=== PATIENT | male | born 1945 | race Hispanic/Latino ===

== ENCOUNTER 2017-10-23 13:44 | Inpatient (IN) | payer MEDICARE ==
[2017-10-23] MEDS ORDERED: Morphine 2 mg/ml ISec IVP STA (14:08)
[2017-10-23] MEDS ORDERED: Sodium Chloride 0.9% 500 ML IV STA ×2 (14:08→21:34)
[2017-10-23 14:41] LABS: BASO # 0.01 K/mm3 (0.0-2.0); BASO % 0.1 % (0.0-3.0); EOS % 0.1 % (1.5-5.0); GRAN # 11.63 (1.4-6.5); GRAN % 89.4 % (50.0-68.0); HEMOGLOBIN 15.4 g/dL (14.0-18.0); LYMPH # 0.9 (1.2-3.4); LYMPH % 7.1 % (22.0-35.0); MEAN CELL VOLUME 99.1 fl (80.0-105.0); MEAN CORPUSCULAR HEMOGLOBIN 34.8 pg (25.0-35.0); MEAN CORPUSCULAR HGB CONC 35.1 g/dl (31.0-37.0); MEAN PLATELET VOLUME 10.5 fl (7.0-11.0); MONO # 0.4 (0.1-0.6); MONO % 3.3 % (1.0-6.0); RBC 4.43 10^6/uL (3.5-6.1); RED CELL DISTRIBUTION WIDTH 12.8 % (11.5-14.5); VENOUS BLOOD GAS BASE EXCESS -1.5 mmol/L (0.0-2.0); VENOUS BLOOD GAS PO2 90 mm/Hg (30-55); VENOUS BLOOD PH 7.37 (7.32-7.43)
[2017-10-23 14:49] LABS: INR 1.02; PARTIAL THROMBOPLASTIN TIME 26.1 Seconds (25.1-36.5); PROTHROMBIN TIME 11.7 SECONDS (9.4-12.5)
[2017-10-23 14:51] LABS: ALB/GLOB RATIO 1.3 (1.1-1.8); ALBUMIN 3.7 g/dL (3.0-4.8); ALT/SGPT 37 U/L (7-56); AMYLASE 72 U/L (35-125); AST/SGOT 26 U/L (17-59); BLOOD UREA NITROGEN 12 mg/dL (7-21); CALCIUM 9.2 mg/dL (8.4-10.5); GFR NON-AFRICAN AMERICAN > 60; LIPASE 127 U/L (23-300)
[2017-10-23] MEDS ORDERED: Pantoprazole 40mg/100mL NS 40 MG/100 ML BAG IVPB SCH (15:00)
[2017-10-23 15:02] LABS: TROPONIN I < 0.01 ng/mL
--- NOTE | 2017-10-23 15:22 | CP.PCM.CON ---
History of Present Illness - History of Present Illness History of Present Illness: Derrek Shea DO, PGY-1 Surgery Consult Note for Dr. Mohan 72M with a history of GERD presents to [facility] sent from [facility] ER, complaining of abdominal pain. He states the pain started early this AM and has been on and off since then. He describes the pain as sharp and burning, 8/ 10 in severity, and localized to the epigastric region without radiation. He admits to a history of similar epigastric pain for the last 3 years, which is usually relieved by Mylanta or Tums. However, today the pain is persistent and worsening. Per patient, his last colonoscopy was 10 yrs ago and was normal. He denies any aggravating factors, he denies fever, chills, vomiting, hematemesis, hemoptysis, chest pain, SOB. CT of the abdomen/pelvis was done at [facility] ED and showed marked wall thickening and irregularity of the gastric antrum with moderate amount of RUQ ascites and a droplet of free intraperitoneal air; findings compatible with perforated gastric ulcer. PMH: GERD, tinnitus (which patient believes is due to Meniere's) PSH: BL inguinal hernia repair NKDA Fam Hx: non-contributory Review of Systems - Review of Systems All systems: reviewed and no additional remarkable complaints except (as per HPI ) - Constitutional Constitutional: As Per HPI. absent: Chills, Fever - EENT Eyes: absent: Change in Vision Ears: Tinnitus, Disequilibrium, Dizziness (occassional on standing) Nose/Mouth/Throat: Nasal Congestion, Dry Mouth - Cardiovascular Cardiovascular: absent: Chest Pain, Diaphoresis - Respiratory Respiratory: absent: Dyspnea, Hemoptysis, Wheezing - Gastrointestinal Gastrointestinal: Abdominal Pain, Nausea. absent: Hematemesis, Hematochezia, Melena, Vomiting - Genitourinary Genitourinary: absent: Change in Urinary Stream, Difficulty Urinating, Dysuria - Neurological Neurological: Disequilibrium. absent: Syncope Past Patient History - Infectious Disease Hx of Infectious Diseases: None - Tetanus Immunizations Tetanus Immunization: Unknown - Past Social History Smoking Status: Smoker Currrent Status Unknown - CARDIAC Hx Hypertension: Yes - RENAL Other/Comment: BPH - PSYCHIATRIC Hx Substance Use: No - SURGICAL HISTORY Hx Herniorrhaphy: Yes Meds Allergies/Adverse Reactions: Allergies Allergy/AdvReac Type Severity Reaction Status Date / Time No Known Allergies Allergy Verified 10/23/17 13:49 - Medications Medications: Current Medications Pantoprazole Sodium (Protonix 40mg Ivpb) 40 mg in 100 mls @ 20 mls/hr IVPB .Q5H TIFFANIE Lactated Ringer's (Lactated Ringer's) 1,000 mls @ 1,000 mls/hr IV .Q1H TIFFANIE Stop: 10/23/17 16:59 Physical Exam - Constitutional Additional comments: Uncomfortable, in pain, no acute respiratory distress - Head Exam Head Exam: ATRAUMATIC, NORMAL INSPECTION - Eye Exam Eye Exam: Normal appearance - ENT Exam ENT Exam: Mucous Membranes Dry - Neck Exam Neck exam: Positive for: Full Rom, Normal Inspection - Respiratory Exam Respiratory Exam: NORMAL BREATHING PATTERN. absent: Accessory Muscle Use, Respiratory Distress - Cardiovascular Exam Cardiovascular Exam: Tachycardia, +S1, +S2 - GI/Abdominal Exam GI & Abdominal Exam: Firm, Guarding, Rebound, Rigid, Tenderness. absent: Distended - Extremities Exam Extremities exam: Positive for: normal inspection. Negative for: calf tenderness, tenderness - Neurological Exam Neurological exam: Alert, Oriented x3 - Psychiatric Exam Psychiatric exam: Anxious, Normal Affect - Skin Skin Exam: Dry, Intact, Normal Color, Warm Results - Vital Signs Recent Vital Signs: Last Vital Signs Temp 99.7 F H 10/23/17 13:44 Pulse 103 H 10/23/17 13:44 Resp 18 10/23/17 13:44 BP 142/94 H 10/23/17 13:44 Pulse Ox 95 10/23/17 13:44 - Labs Result Diagrams: 10/23/17 14:25 10/23/17 14:25 Labs: Laboratory Results - last 24 hr 10/23/17 14:49 BBK History Checked No verified bt - Imaging and Cardiology CT scan - abdomen Status: Report reviewed by me Assessment & Plan - Assessment and Plan (Free Text) Assessment: 72M with acute abdomen with CT concerning for perforated gastric ulcer Plan: -OR for urgent ex lap -NPO -Unable to place NG tube at bedside after 4 attempts, will place after sedation prior to OR -IVF -Protonix drip -PRN pain medication Case and plan d/w Dr. Marques Shea, DO IM Resident PGY-1
--- NOTE | 2017-10-23 15:34 | ED PDOC ---
Arrival/HPI - General Chief Complaint: Abdominal Pain Time Seen by Provider: 10/23/17 13:45 Historian: Patient, Family, Other ([facility] ER in [place], Dr. Saurabh Hoskins) - History of Present Illness Narrative History of Present Illness (Text): 10/23/17 15:29 Patient is a 72 year old male, past medical history of hypertension, presents as a transfer from [facility] in [place] for history of abdominal pain. Patient states that he has a history of getting "heartburn" on and off "for quite some time" but at approximately 6 am he suddenly developed severe upper mid abdominal pain. Reports pain 10/10. Denies chest pain or shortness of breath. Reports some nausea. Denies hemoptysis or hematemeis. Denies dark or blood stools. Denies pleuritic pain. Patient presented to outside ER approximately 9 am, where a workup was initiated including labs and CT. As per transferring physician Dr. Umer Hoskins, the patient's CT revealed "possible gastric ulcer perforation". Patient received iv morphine, iv fluids, iv antibiotics at outside facility and was transferred to this facility reportedly by patient's request as his primary physician is here. He states pain is persistent, now "8 out of 10". He denies any chest pain or shortness of breath. Denies any hematemesis or hemoptysis. Past Medical History - Cardiac Hx Hypertension: Yes - Renal Other/Comment: BPH - Psychiatric Hx Substance Use: No Family/Social History Family/Social History: Unknown Family HX Smoking Status: Smoker Currrent Status Unknown Hx Alcohol Use: Yes Frequency of alcohol use: Daily Hx Substance Use: No Allergies/Home Meds Allergies/Adverse Reactions: Allergies No Known Allergies Allergy (Verified 10/23/17 13:49) Home Medications: Home Meds Medication Instructions Recorded Confirmed Benazepril HCl [Lotensin] 40 mg PO DAILY 09/12/17 10/23/17 Tamsulosin [Flomax] 0.4 mg PO DAILY 09/12/17 10/23/17 Temazepam [Restoril] 30 mg PO HS 09/12/17 10/23/17 Diclofenac [Diclofenac] 100 mg PO DAILY 10/23/17 10/23/17 Review of Systems - Review of Systems Constitutional: Fatigue. absent: Fevers Eyes: absent: Vision Changes ENT: absent: Hearing Changes Respiratory: absent: SOB, Cough Cardiovascular: absent: Chest Pain, MAR Gastrointestinal: Abdominal Pain, Nausea. absent: Constipation, Diarrhea, Hematochezia, Hematemesis Musculoskeletal: absent: Back Pain, Neck Pain Skin: absent: Rash Neurological: absent: Headache, Dizziness, Focal Weakness Endocrine: absent: Polyuria Hemo/Lymphatic: absent: Easy Bleeding Psychiatric: absent: Anxiety Physical Exam - Physical Exam Narrative Physical Exam (Text): 10/23/17 14:06 Head: Atraumatic. Normocephalic. Eyes: PERRL. EOMI. Conjunctivae are not pale. ENT: Mucous membranes are dry. Oropharynx is clear and symmetric. No angioedema. Neck: Supple. Full ROM. No JVD. No lymphadenopathy. No meningeal signs. Cardiovascular: Tachycardic. Systolic murmur noted. Distal pulses intact. Pulmonary/Chest: No evidence of respiratory distress. Clear to auscultation bilaterally. No wheezing, rales or rhonchi. Abdominal: Rigid abdomen with rebound and guarding, no pulsatile masses. Hypoactive bowel sounds. Rectal: no gross bleeding Back: No CVA tenderness. Extremities: No cyanosis. No clubbing. Full range of motion in all extremities. No calf tenderness. Skin: Skin is diaphoretic. Neurological: Alert, awake, and oriented. Motor and sensory exam intact. Psychiatric: Good eye contact. Normal interaction, affect, and behavior. Vital Signs Reviewed: Yes Vital Signs Temp Pulse Resp BP Pulse Ox 10/23/17 16:04 98.0 F 115 H 18 136/80 95 10/23/17 15:49 108 H 130/78 10/23/17 13:44 99.7 F H 103 H 18 142/94 H 95 Temperature: Afebrile Blood Pressure: Hypertensive Pulse: Tachycardic Appearance: Positive for: Ill-Appearing Pain Distress: Severe Mental Status: Positive for: Alert and Oriented X 3 Medical Decision Making ED Course and Treatment: 10/23/17 15:55 Patient seen immediately upon arrival to ED. I had communicated with patient's PMD and surgical team prior to patient's arrival in expectation of his arrival. I communicated with outside facility who stated that iv pain medication, fluids , and antibiotics have been given prior to transfer. Patient has been initiated on Protonix drip and received Zosyn. Surgical team immediately made aware of patient's arrival to ED. Dr. Presley Mohan consulted and Dr. Presley Palm updated. On initial evaluation in our ED, patient is tachycardic, heart fate 108 I feel somewhat related to pain. SBP 140s. I reviewed labs from outside facility and ordered repeat labs. Patient evaluated by OR team, will be taken to OR from the Emergency Department. 10/23/17 16:[address] [facility] Emergency room, including lab results, CT of Abdomen/Pelvis and Chest X-ray. CT of Abdomen/Pelvis was performed today at [facility] at 10:15am and showed "marked wall thickening and irregularity of the gastric antrum with moderate amount of right upper quadrant ascites and a droplet of intraperitoneal air. Findings are most compatible with a perforated gastric ulcer. Cholelithiasis." Result of chest X-ray performed today at 10:31 am reviewed, which shows "no radiographic evidence of acute cardiopulmonary disease." Labs performed today at 9:14am showed an elevated WBC count of 11.4 and hemoglobin of 15.0. ANTIBIOTICS GIVEN PRIOR TO ARRIVAL. - Critical Care Critical Care Minutes: 30 minutes - RAD Interpretation Radiology Orders: 10/23/17 14:06 CHEST PORTABLE [RAD] Stat - EKG Interpretation EKG Interpretation (Text): 10/23/17 21:56 EKG at 1416 normal sinus rhythm rate of 100 with right bundle branch block, left anterior fascicular block Interpreted by ED Physician: Yes Type: 12 lead EKG - Medication Orders Current Medication Orders: Enoxaparin Sodium (Lovenox) 30 mg SC DAILY TIFFANIE PRN Reason: Protocol Lactated Ringer's (Lactated Ringer's) 1,000 mls @ 150 mls/hr IV .Q6H40M [facility] Last Admin: 10/23/17 20:49 Dose: 150 mls/hr eMAR Start Stop Document 10/23/17 20:49 OYELO (Rec: 10/23/17 20:49 OYELO [id number]) Intravenous Solution Start Date 10/23/17 Start Time 19:30 Metronidazole (Flagyl) 500 mg in 100 mls @ 100 mls/hr IVPB Q8 TIFFANIE PRN Reason: Protocol Ampicillin Sodium/Sulbactam (Sodium 3 gm/ Sodium Chloride) 100 mls @ 200 mls/ hr IVPB Q6 TIFFANIE PRN Reason: Protocol Hydromorphone HCl (Dilaudid 0.2 Mg/Ml Development Technical Lead) 25 mls @ 0 mls/hr IV PRN PRN; Protocol; Per Protocol PRN Reason: Pain, moderate (4-7) Sodium Chloride (Sodium Chloride 0.9%) 500 mls @ 999 mls/hr IV .Q31M STA Stop: 10/23/17 22:04 Pantoprazole Sodium (Protonix Inj) 40 mg IVP Q12 TIFFANIE Discontinued Medications Hydromorphone HCl (Dilaudid) 0.5 mg IVP Q15M PRN PRN Reason: Pain, moderate (4-7) Stop: 10/23/17 20:21 Sodium Chloride (Sodium Chloride 0.9%) 500 mls @ 1,000 mls/hr IV .Q30M STA Stop: 10/23/17 14:37 Last Admin: 10/23/17 14:37 Dose: 1,000 mls/hr eMAR Start Stop Document 10/23/17 14:37 (Rec: 10/23/17 14:37 [id number] Intravenous Solution Start Date 10/23/17 Start Time 14:37 Pantoprazole Sodium (Protonix 40mg Ivpb) 40 mg in 100 mls @ 20 mls/hr IVPB .Q5H TIFFANIE Last Admin: 10/23/17 15:43 Dose: 20 mls/hr eMAR Start Stop Document 10/23/17 15:43 (Rec: 10/23/17 15:43 [id number]) Intravenous Solution Start Date 10/23/17 Start Time 15:43 Lactated Ringer's (Lactated Ringer's) 1,000 mls @ 1,000 mls/hr IV .Q1H TIFFANIE Stop: 10/23/17 16:59 Last Admin: 10/23/17 15:53 Dose: 1,000 mls/hr eMAR Start Stop Document 10/23/17 15:53 OCS (Rec: 10/23/17 15:53 OCS [id number]) Intravenous Solution Start Date 10/23/17 Start Time 15:53 End Date 10/23/17 End time 16:53 Total Infusion Time 60 Lactated Ringer's (Lactated Ringer's) 1,000 mls @ 75 mls/hr IV .[id number] [facility] Stop: 10/23/17 20:31 Morphine Sulfate (Morphine) 2 mg IVP STAT STA Stop: 10/23/17 14:09 Last Admin: 10/23/17 14:36 Dose: 2 mg MAR Pain Assessment Document 10/23/17 14:36 (Rec: 10/23/17 14:36 [id number]) Pain Reassessment Is this a pain reassessment? No Sleep Is patient sleeping during reassessment? No Presence of Pain Presence of Pain Yes IVP Administration Document 10/23/17 14:36 (Rec: 10/23/17 14:36 [id number]) Charges for Administration # of IVP Administrations 1 Pneumococcal Polyvalent Vaccine (Pneumovax 23 Vaccine) 0.5 ml IM .ONCE ONE Stop: 10/23/17 21:44 Disposition/Present on Arrival - Present on Arrival Any Indicators Present on Arrival: No History of DVT/PE: No History of Uncontrolled Diabetes: No Urinary Catheter: No History of Decub. Ulcer: No History Surgical Site Infection Following: None - Disposition Have Diagnosis and Disposition been Completed?: Yes Diagnosis: Acute abdomen, Peritonitis Disposition: HOSPITALIZED Disposition Time: 14:45 Patient Plan: Admission, ICU Patient Problems: Current Active Problems Problem Status Onset Acute abdomen Acute Peritonitis Acute Condition: CRITICAL
[2017-10-23] MEDS: Lactated Ringer's 1,000 ML IV SCH ×2 (15:53→20:49)
[2017-10-23 16:09] LABS: URINE BILIRUBIN NEGATIVE (NEGATIVE); URINE BLOOD TRACE-INTACT (NEGATIVE); URINE GLUCOSE (UA) NEGATIVE (NEGATIVE); URINE LEUKOCYTE ESTERASE NEGATIVE Leu/uL (NEGATIVE); URINE PROTEIN TRACE mg/dL (<30 mg/dL); URINE UROBILINOGEN 0.2 E.U./dL (<1 E.U./dL)
[2017-10-23 16:11] LABS: URINE APPEARANCE CLOUDY (CLEAR); URINE COLOR LIGHT YELLOW (YELLOW)
[2017-10-23] MEDS ORDERED: Midazolam 2 MG/2 ML VIAL ONE (16:24)
[2017-10-23] MEDS ORDERED: Propofol 10 mg/ml Inj (20 ML) ONE (16:24)
[2017-10-23] MEDS ORDERED: Rocuronium 10 mg/ml (5 ml) ONE ×2 (16:36→17:29)
[2017-10-23 16:37] LABS: URINE AMORPHOUS SEDIMENT MODERATE; URINE BACTERIA LARGE (NEG)
[2017-10-23] MEDS ORDERED: Oxychlorosene Topical 2 gm Packet TOP ONE (16:50)
--- NOTE | 2017-10-23 17:11 | CARD ---
APPROVED REPORT Date of service: 10/23/2017 EKG Measurement Heart [id number] <Conclusion> Normal sinus rhythm Right bundle branch block Left anterior fascicular block Bifascicular block Possible Lateral infarct, age undetermined Abnormal ECG
[2017-10-23] MEDS ORDERED: Glycopyrrolate 0.2 mg/ml (2ml vial) ONE (17:32)
[2017-10-23] MEDS ORDERED: Neostigmine Methylsulfate 3mg/3ml Syringe IV ONE (17:32)
[2017-10-23] MEDS ORDERED: Bupivacaine Liposomal Inj 20 ml ONE (17:47)
[2017-10-23] MEDS ORDERED: Sodium Chloride 0.9% 20 ML IV ONE (17:47)
--- NOTE | 2017-10-23 18:01 | RAD ---
HISTORY: abdominal pain COMPARISON: None available. TECHNIQUE: Chest, one view. FINDINGS: Examination limited by habitus and hypoinflation LUNGS: Bibasilar atelectasis. Please note that chest x-ray has limited sensitivity for the detection of pulmonary masses. PLEURA: No significant pleural effusion identified. No definite pneumothorax . CARDIOVASCULAR: Heart size appears top normal. Ectatic aorta. OSSEOUS STRUCTURES: Degenerative changes. VISUALIZED UPPER ABDOMEN: Unremarkable. OTHER FINDINGS: None. IMPRESSION: Hypoinflation. Bibasilar atelectasis.
--- NOTE | 2017-10-23 18:20 | PCM.SURG1 ---
Surgeon's Initial Post Op Note - Surgeon's Notes Surgeon: Dr. Mohan Manager Action: Dr. Griffith PGY3, Dr. Spencer PGY4 Type of Anesthesia: General Endo Pre-Operative Diagnosis: Generalized Peritonitis Operative Findings: See operative dictation Post-Operative Diagnosis: Duodenal perforation Operation Performed: Exlap with grahm patch closure of duodenal perforation Specimen/Specimens Removed: None Estimated Blood Loss: EBL {In ML}: 10 Blood Products Given: N/A Drains Used: Kota Post-Op Condition: Fair Date of Surgery/Procedure: 10/23/17 Time of Surgery/Procedure: 18:20
[2017-10-23] MEDS ORDERED: HYDROmorphone 0.5 mg/0.5 ml ISec IVP PRN (18:21)
[2017-10-23] MEDS ORDERED: HYDROmorphone 1 mg/ml ISec ONE (18:22)
[2017-10-23] MEDS ORDERED: Lactated Ringer's 1,000 ML IV SCH (18:30)
[2017-10-23] MEDS: HYDROmorphone 0.5 mg/0.5 ml ISec ONE ×2 (18:45→19:00)
[2017-10-23] MEDS ORDERED: HYDROmorphone 0.5 mg/0.5 ml ISec ONE (19:14)
[2017-10-23] MEDS: metroNIDAZOLE IV 500 mg/100 ml 500 MG/100 ML BAG IVPB SCH (21:38)
[2017-10-23 21:43] VITALS: BMI 26.9
[2017-10-23] MEDS ORDERED: Pneumococcal 23-Valent Vaccine IM ONE (21:43)
[2017-10-23] MEDS: HYDROmorphone 0.2 mg/ml (30ml) 25 ML IV PRN (22:16)
--- NOTE | 2017-10-23 23:27 | CP.PCM.CON ---
<Guille Sharp - Last Filed: 10/23/17 23:39> History of Present Illness - History of Present Illness History of Present Illness: PGY-2 ICU consult note for Dr Sylvester Mr Raza is a 72 year old male with a PMHx of GERD who was sent from [facility] ER because of a perforated gastric ulcer. The patient initially went to [facility] ER because of abdominal pain. A CT abd/ pelvis was done at [facility] ED showed findings compatible with perforated gastric ulcer. Surgeon Dr Mohan and his team performed an emergent exlap with grahm patch closure of a duondenal perforation. PMHx: GERD, tinnitus (which patient believes is due to Meniere's) PSHx: BL inguinal hernia repair All: NKDA Home Meds: Restoril 30mg po hs, flomax 0.4mg po qd, diclofenac 100mg po qd, benazepril 40mg po qd FamHx: non-contributory Review of Systems - Constitutional Constitutional: absent: Chills, Fever - EENT Eyes: absent: Blurred Vision Nose/Mouth/Throat: absent: Nasal Congestion - Cardiovascular Cardiovascular: absent: Chest Pain - Respiratory Respiratory: absent: Cough - Gastrointestinal Gastrointestinal: Abdominal Pain - Genitourinary Genitourinary: absent: Dysuria - Musculoskeletal Musculoskeletal: absent: Arthralgias - Integumentary Integumentary: absent: Bleeding Lesions Past Patient History - Infectious Disease Hx of Infectious Diseases: None - Tetanus Immunizations Tetanus Immunization: Unknown - Past Social History Smoking Status: Smoker Currrent Status Unknown - CARDIAC Hx Hypertension: Yes - PULMONARY Hx Respiratory Disorders: No - NEUROLOGICAL Hx Neurological Disorder: No - HEENT Hx HEENT Problems: No - RENAL Other/Comment: BPH - ENDOCRINE/METABOLIC Hx Endocrine Disorders: No - HEMATOLOGICAL/ONCOLOGICAL Hx Blood Disorders: No - INTEGUMENTARY Hx Dermatological Problems: Yes Other/Comment: abd surgical dressing dry ad intact with kelsey draining bloody fluid - MUSCULOSKELETAL/RHEUMATOLOGICAL Hx Falls: No - GASTROINTESTINAL Hx Gastrointestinal Disorders: Yes Hx Gastroesophageal Reflux: Yes - GENITOURINARY/GYNECOLOGICAL Hx Prostate Problems: Yes (bph on flomax) - PSYCHIATRIC Hx Substance Use: No - SURGICAL HISTORY Hx Surgeries: Yes Other/Comment: today 10/23/17 exp lap with grahm patch closure of perforation Meds Allergies/Adverse Reactions: Allergies Allergy/AdvReac Type Severity Reaction Status Date / Time No Known Allergies Allergy Verified 10/23/17 13:49 - Medications Medications: Current Medications Enoxaparin Sodium (Lovenox) 30 mg SC DAILY [facility] PRN Reason: Protocol Lactated Ringer's (Lactated Ringer's) 1,000 mls @ 150 mls/hr IV .Q6H40M [facility] Last Admin: 10/23/17 20:49 Dose: 150 mls/hr Metronidazole (Flagyl) 500 mg in 100 mls @ 100 mls/hr IVPB Q8 TIFFANIE PRN Reason: Protocol Last Admin: 10/23/17 21:38 Dose: 100 mls/hr Ampicillin Sodium/Sulbactam (Sodium 3 gm/ Sodium Chloride) 100 mls @ 200 mls/ hr IVPB Q6 [facility] PRN Reason: Protocol Hydromorphone HCl (Dilaudid 0.2 Mg/Ml Cabinet Abrasive Sandblaster) 25 mls @ 0 mls/hr IV PRN PRN; Protocol; Per Protocol PRN Reason: Pain, moderate (4-7) Last Admin: 10/23/17 22:16 Dose: 1 mls/hr Pantoprazole Sodium (Protonix Inj) 40 mg IVP Q12 [facility] Last Admin: 10/23/17 21:38 Dose: 40 mg Physical Exam - Additional Findings Additional findings: - Constitutional Additional comments: comfortable, no acute distress - Head Exam Head Exam: ATRAUMATIC, NORMAL INSPECTION - Eye Exam Eye Exam: Normal appearance - ENT Exam ENT Exam: Mucous Membranes Dry - Neck Exam Neck exam: Positive for: Full Rom, Normal Inspection - Respiratory Exam Respiratory Exam: NORMAL BREATHING PATTERN. absent: Accessory Muscle Use, Respiratory Distress - Cardiovascular Exam Cardiovascular Exam: Tachycardia, +S1, +S2 - GI/Abdominal Exam GI & Abdominal Exam: Firm, Guarding, Rebound, Rigid, Tenderness. absent: Distended - Extremities Exam Extremities exam: Positive for: normal inspection. Negative for: calf tenderness, tenderness - Neurological Exam Neurological exam: Alert, Oriented x3 - Psychiatric Exam Psychiatric exam: Normal Affect - Skin Skin Exam: Dry, Intact, Normal Color, Warm Results - Vital Signs Recent Vital Signs: Last Vital Signs Temp 98 F 10/23/17 21:29 Pulse 97 H 10/23/17 21:29 Resp 24 10/23/17 21:29 BP 138/87 10/23/17 21:29 Pulse Ox 99 10/23/17 19:30 - Labs Result Diagrams: 10/23/17 14:25 10/23/17 14:25 Labs: Laboratory Results - last 24 hr 10/23/17 10/23/17 14:49 15:45 Urine Color Light yellow Urine Appearance Cloudy Urine pH 6.0 Ur Specific [place] 1.015 Urine Protein Trace H Urine Glucose (UA) Negative Urine Ketones 15 H Urine Blood Trace-intact H Urine Nitrate Negative Urine Bilirubin Negative Urine Urobilinogen 0.2 Ur Leukocyte Esterase Negative Urine RBC 2 - 5 Urine WBC 1 - 3 Ur Epithelial Cells None Amorphous Sediment Moderate Urine Bacteria Large Urine Other Uyeast Blood Type O NEGATIVE Antibody Screen Negative BBK History Checked No verified bt Assessment & Plan - Assessment and Plan (Free Text) Plan: 72M with acute abdomen with CT findings concerning for perforated gastric ulcer s/p emergent exlap with grahm patch closure of duodenal perforation: GI: -s/p emergent exlap with grahm patch closure of duodenal perforation 10/23/[address] Mohan -metronidazole 500mg ivpb q8h -unasyn 3g ivpb q6h -dilaudid via GLAZIER STAINED GLASS for pain control -LR 150cc/hr -Protonix 40mg ivp q12h -encourage incentive spirometry use -NGT to suction -NPO for now ID: -mild leukocytosis 2/2 stress response from recent surgery -metronidazole 500mg ivpb q8h -unasyn 3g ivpb q6h -F/U blood cx, urine cx, wound cx Pulm: -saturating well on room air Prophylaxis: -Protonix 40mg ivp q12h -SCDs -Lovenox 30mg sc qd -NPO for now Case discussed with Stem Teacher Dr Sylvester <Ritchie Sylvester - Last Filed: 10/24/17 03:52> Meds - Medications Medications: Current Medications Enoxaparin Sodium (Lovenox) 30 mg SC DAILY TIFFANIE PRN Reason: Protocol Lactated Ringer's (Lactated Ringer's) 1,000 mls @ 150 mls/hr IV .Q6H40M [facility] Last Admin: 10/23/17 20:49 Dose: 150 mls/hr Metronidazole (Flagyl) 500 mg in 100 mls @ 100 mls/hr IVPB Q8 TIFFANIE PRN Reason: Protocol Last Admin: 10/23/17 21:38 Dose: 100 mls/hr Ampicillin Sodium/Sulbactam (Sodium 3 gm/ Sodium Chloride) 100 mls @ 200 mls/ hr IVPB Q6 TIFFANIE PRN Reason: Protocol Last Admin: 10/24/17 00:01 Dose: 200 mls/hr Hydromorphone HCl (Dilaudid 0.2 Mg/Ml Cabinet Abrasive Sandblaster) 25 mls @ 0 mls/hr IV PRN PRN; Protocol; Per Protocol PRN Reason: Pain, moderate (4-7) Last Admin: 10/23/17 22:16 Dose: 1 mls/hr Pantoprazole Sodium (Protonix Inj) 40 mg IVP Q12 TIFFANIE Last Admin: 10/23/17 21:38 Dose: 40 mg Results - Vital Signs Recent Vital Signs: Last Vital Signs Temp 98 F 10/23/17 21:29 Pulse 91 H 10/24/17 03:40 Resp 23 10/24/17 03:40 BP 135/78 10/24/17 03:00 Pulse Ox 95 10/24/17 03:40 - Labs Result Diagrams: 10/23/17 14:25 10/23/17 14:25 Labs: Laboratory Results - last 24 hr 10/23/17 10/23/17 14:49 15:45 Urine Color Light yellow Urine Appearance Cloudy Urine pH 6.0 Ur Specific [place] 1.015 Urine Protein Trace H Urine Glucose (UA) Negative Urine Ketones 15 H Urine Blood Trace-intact H Urine Nitrate Negative Urine Bilirubin Negative Urine Urobilinogen 0.2 Ur Leukocyte Esterase Negative Urine RBC 2 - 5 Urine WBC 1 - 3 Ur Epithelial Cells None Amorphous Sediment Moderate Urine Bacteria Large Urine Other Uyeast Blood Type O NEGATIVE Antibody Screen Negative BBK History Checked No verified bt Attending/Attestation - Attestation I have personally seen and examined this patient.: Yes I have fully participated in the care of the patient.: Yes I have reviewed all pertinent clinical information: Yes
[2017-10-24] MEDS: metroNIDAZOLE IV 500 mg/100 ml 500 MG/100 ML BAG IVPB SCH ×3 (07:00→22:34)
[2017-10-24 07:31] LABS: BASO # 0.02 K/mm3 (0.0-2.0); BASO % 0.2 % (0.0-3.0); EOS % 0.1 % (1.5-5.0); GRAN # 9.35 (1.4-6.5); GRAN % 84.1 % (50.0-68.0); HEMOGLOBIN 14.3 g/dL (14.0-18.0); LYMPH # 1.2 (1.2-3.4); LYMPH % 10.6 % (22.0-35.0); MEAN CORPUSCULAR HEMOGLOBIN 33.6 pg (25.0-35.0); MEAN CORPUSCULAR HGB CONC 33.6 g/dl (31.0-37.0); MEAN PLATELET VOLUME 10.4 fl (7.0-11.0); MONO # 0.6 (0.1-0.6); RBC 4.25 10^6/uL (3.5-6.1); WHITE BLOOD COUNT 11.1 10^3/ul (4.5-11.0)
[2017-10-24 08:07] LABS: ALB/GLOB RATIO 1.1 (1.1-1.8); ALT/SGPT 25 U/L (7-56); AST/SGOT 25 U/L (17-59); BLOOD UREA NITROGEN 13 mg/dL (7-21); CALCIUM 8.4 mg/dL (8.4-10.5); GFR NON-AFRICAN AMERICAN > 60
[2017-10-24] MEDS: Lactated Ringer's 1,000 ML IV SCH ×3 (08:13→17:49)
--- NOTE | 2017-10-24 08:37 | HP ---
CHIEF COMPLAINT: Abdominal pain. HISTORY OF PRESENT ILLNESS: This is a 72-year-old man, who presented to the emergency room with abdominal pain. He was found to have in the diaphragm and came to the Emergency Room at [facility] for admission, was seen by surgical team and Dr. Addison Mohan, went to the OR and had a repair of a perforated duodenal diverticulum. He is now in ICU, extubated, awake, with an NG tube in place. His is in the waiting area and I spoke with her later. PAST MEDICAL HISTORY: Significant for hypertension since before we first met in 1992. Negative for diabetes, tuberculosis, asthma, seizures, gout, coronary artery disease, [place], TIA, CVA, or cancers of any type. CURRENT MEDICATIONS: Include Valsartan 100 mg daily, tamsulosin 0.4, and Lotrel 5/10 once daily. SOCIAL HISTORY: He is a lifetime smoker, continues to smoke. He admits to smoking half pack a day, although his states may be more. He drinks approximately 3 mixed drinks daily, three cups of coffee daily. FAMILY HISTORY: His mother at age 58 of oral cancer, head and neck cancer. Father at age 70 of hypertension, pneumonia, [place], and diabetes. He has 6 brothers and 2 sisters. He is single. 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 REVIEW OF SYSTEMS: Otherwise, unremarkable and unobtainable given his recent postop today. PHYSICAL EXAMINATION: GENERAL: The patient was seen in Intensive Care Unit, bed 3, in bed, being settled in, turns from side to side. NG tube is in placed. HEENT: Head and neck are otherwise unremarkable. NECK: Supple without masses. Thyroid is not palpable. No JVD. LUNGS: Showed good aeration right and left. HEART: Regular, not tachycardic. ABDOMEN: Soft, but quiet for actually postop. EXTREMITIES: Have SCDs in place, but no significant edema. IMPRESSION: 1. Perforated duodenal ulcer. 2. Hypertension. 3. Tobacco use. 4. Benign prostatic hypertrophy, on tamsulosin. PLAN: Continue postop course, IV fluids, proton pump inhibitors, serial labs, NG tube until bowel sounds begin, postop care per Surgical team. I spoke with the patient's as well as the patient regarding importance of tobacco cessation, alcohol, cocktails, and exercise activity. Addison Palm MD
[2017-10-24] MEDS ORDERED: Enoxaparin 30 mg Syringe SC SCH (10:00)
--- NOTE | 2017-10-24 10:13 | CP.PCM.PN ---
Subjective - Date & Time of Evaluation Date of Evaluation: 10/24/17 Time of Evaluation: 10:06 - Subjective Subjective: General Surgery - Dr. Mohan Pt S&E. ROSALBA. Pt reports moderate post-op pain but controlled with INSERTER. He denies any nausea/vomiting. He has NGT in place to low cont. suction, minimal output bilious. No fevers/chills, sob/chest pain. Objective - Vital Signs/Intake and Output Vital Signs (last 24 hours): Temp Pulse Resp BP Pulse Ox 99.0 F 91 H 20 167/97 H 96 10/24/17 07:44 10/24/17 08:35 10/24/17 08:35 10/24/17 08:35 10/24/17 08:35 Intake and Output: 10/24/17 10/24/17 06:59 18:59 Intake Total 3745 Output Total 950 Balance 2795 - Medications Medications: Current Medications Enoxaparin Sodium (Lovenox) 30 mg SC DAILY TIFFANIE PRN Reason: Protocol Last Admin: 10/24/17 09:39 Dose: 30 mg Lactated Ringer's (Lactated Ringer's) 1,000 mls @ 150 mls/hr IV .Q6H40M [facility] Last Admin: 10/24/17 08:13 Dose: 150 mls/hr Metronidazole (Flagyl) 500 mg in 100 mls @ 100 mls/hr IVPB Q8 TIFFANIE PRN Reason: Protocol Last Admin: 10/24/17 07:00 Dose: 100 mls/hr Ampicillin Sodium/Sulbactam (Sodium 3 gm/ Sodium Chloride) 100 mls @ 200 mls/ hr IVPB Q6 TIFFANIE PRN Reason: Protocol Last Admin: 10/24/17 06:21 Dose: 200 mls/hr Hydromorphone HCl (Dilaudid 0.2 Mg/Ml E Tailer) 25 mls @ 0 mls/hr IV PRN PRN; Protocol; Per Protocol PRN Reason: Pain, moderate (4-7) Last Admin: 10/23/17 22:16 Dose: 1 mls/hr Non-Formulary Medication (Temazepam [Restoril]) 30 mg PO HS TIFFANIE Pantoprazole Sodium (Protonix Inj) 40 mg IVP Q12 [facility] Last Admin: 10/24/17 09:40 Dose: 40 mg Tamsulosin HCl (Flomax) 0.4 mg PO DAILY TIFFANIE - Labs Labs: 10/24/17 06:45 10/24/17 06:50 PT 11.7 SECONDS (9.4-12.5) 10/23/17 14:25 INR 1.02 10/23/17 14:25 APTT 26.1 Seconds (25.1-36.5) 10/23/17 14:25 - Constitutional Appears: No Acute Distress - Head Exam Head Exam: ATRAUMATIC, NORMAL INSPECTION, NORMOCEPHALIC - Respiratory Exam Respiratory Exam: NORMAL BREATHING PATTERN. absent: Respiratory Distress - Cardiovascular Exam Cardiovascular Exam: Tachycardia - GI/Abdominal Exam GI & Abdominal Exam: Soft, Tenderness (appropriate). absent: Distended, Firm, Guarding, Rigid, Rebound Additional comments: jah drain in RUQ w/ serosang output - Neurological Exam Neurological Exam: Alert, Oriented x3 - Psychiatric Exam Psychiatric exam: Normal Affect - Skin Skin Exam: Dry, Intact Assessment and Plan - Assessment and Plan (Free Text) Assessment: 72 yo M w/ perforated duodenal ulcer s/p Ex Lap w/ omental patch repair, POD #1 -Continue NGT to low cont suction, clamp for medications prn -Flomax this AM and D/C Eduardo this afternoon -OOB to chair -Pain control with INSERTER -Physical therapy -DVT prophylaxis DW Dr Marques Spencer PGy4
--- NOTE | 2017-10-24 12:04 | CP.CCUPN ---
<Carmencita Palmer - Last Filed: 10/24/17 14:39> CCU Subjective - Physician Review Subjective (Free Text): 10/24/17 11:56 Patient seen and examined at bedside. No acute events overnight. Patient reports mid-abdominal tenderness, controlled by dilaudid LUGGAGE ATTENDANT pump. Denies passing flatus, BM, fevers, chills, nausea, vomiting, leg swelling. His NGT output is 20 cc bilious. VALERIA output 90cc SS. CCU Objective - Vital Signs / Intake & Output Vital Signs (Last 4 hours): Vital Signs Pulse Resp BP Pulse Ox 10/24/17 10:00 92 H 10/24/17 08:35 91 H 20 167/97 H 96 10/24/17 08:30 91 H 96 10/24/17 08:20 94 H 10/24/17 08:04 92 H 22 96 10/24/17 08:00 94 H 24 162/106 H 97 Intake and Output (Last 8hrs): Intake & Output 10/23/17 10/24/17 10/24/17 22:59 06:59 14:59 Intake Total 3745 Output Total 0 950 Balance 0 2795 Weight 204 lb 213 lb Intake: IV 3745 Left Antecubital 1300 Right Antecubital 2445 Oral 0 Output: Drainage 30 VALERIA drain 30 Urine 920 Urethral (Eduardo) 920 Stool 0 0 Other: Voiding Method Indwelling Catheter - Physical Exam Head: Positive for: Atraumatic, Normocephalic Pupils: Positive for: PERRL. Negative for: Sluggish, Non-Reactive, Pinpoint Extroacular Muscles: Positive for: EOMI Conjunctiva: Positive for: Normal Mouth: Positive for: Moist Mucous Membranes, Normal Tounge Neck: Positive for: Normal Range of Motion Respiratory/Chest: Positive for: Clear to Auscultation, Good Air Exchange. Negative for: Respiratory Distress, Accessory Muscle Use, Wheezes Cardiovascular: Positive for: Regular Rate and Rhythm, Normal S1, S2. Negative for: Irregular Rhythm Abdomen: Positive for: Tenderness, Other (covered in abdominal binder, c/d/i, jah drain 90 cc SS). Negative for: Distention, Normal Bowel Sounds Lower Extremity: Positive for: Normal Inspection. Negative for: Edema Neurological: Positive for: GCS=15, CN II-XII Intact, Speech Normal Skin: Positive for: Warm, Dry, Normal Color Psychiatric: Positive for: Alert, Oriented x 3 - Medications Active Medications: Active Medications Generic Name Dose Route Start Last Admin Trade Name Freq PRN Reason Stop Dose Admin Enoxaparin Sodium 30 mg 10/24/17 10:00 10/24/17 09:39 Lovenox SC 30 mg DAILY TIFFANIE Administration Protocol Lactated Ringer's 1,000 mls @ 150 mls/hr 10/23/17 18:30 10/24/17 08:13 Lactated Ringer's IV 150 mls/hr .Q6H40M TIFFANIE Administration Metronidazole 500 mg in 100 mls @ 100 mls/hr 10/23/17 22:00 10/24/17 07:00 Flagyl IVPB 100 mls/hr Q8 TIFFANIE Administration Protocol Ampicillin Sodium/Sulbactam 100 mls @ 200 mls/hr 10/24/17 00:00 10/24/17 11: 12 Sodium 3 gm/ Sodium Chloride IVPB 200 mls/hr Q6 TIFFANIE Administration Protocol Hydromorphone HCl 25 mls @ 0 mls/hr 10/23/17 18:22 10/23/17 22:16 Dilaudid 0.2 Mg/Ml Principal Consulting Engineer IV 1 mls/hr PRN PRN Administration Pain, moderate (4-7) Protocol Per Protocol Non-Formulary Medication 30 mg 10/24/17 22:00 Temazepam [Restoril] PO HS TIFFANIE Pantoprazole Sodium 40 mg 10/23/17 22:00 10/24/17 09:40 Protonix Inj IVP 40 mg Q12 TIFFANIE Administration Tamsulosin HCl 0.4 mg 10/24/17 10:00 10/24/17 10:50 Flomax PO 0.4 mg DAILY TIFFANIE Administration - Patient Studies Lab Studies: Lab Studies 10/24/17 10/24/17 10/24/17 Range/Units 06:50 06:50 06:45 WBC 11.1 H (4.5-11.0) 10^3/ul RBC 4.25 (3.5-6.1) 10^6/uL Hgb 14.3 (14.0-18.0) g/dL Hct 42.5 (42.0-52.0) % MCV 100.0 (80.0-105.0) fl MCH 33.6 (25.0-35.0) pg MCHC 33.6 (31.0-37.0) g/dl RDW 13.0 (11.5-14.5) % Plt Count 199 (120.0-450.0) 10^3/uL MPV 10.4 (7.0-11.0) fl Gran % 84.1 H (50.0-68.0) % Lymph % (Auto) 10.6 L (22.0-35.0) % [place] % (Auto) 5.0 (1.0-6.0) % Eos % (Auto) 0.1 L (1.5-5.0) % Baso % (Auto) 0.2 (0.0-3.0) % Gran # 9.35 H (1.4-6.5) Lymph # (Auto) 1.2 (1.2-3.4) [place] # (Auto) 0.6 (0.1-0.6) Eos # (Auto) 0.0 (0.0-0.7) Baso # (Auto) 0.02 (0.0-2.0) K/mm3 Sodium 136 (132-148) mmol/L Potassium 4.0 (3.6-5.0) mmol/L Chloride 105 (98-107) mmol/L Carbon Dioxide 25 (21-33) mmol/L Anion Gap 10 (10-20) BUN 13 (7-21) mg/dL Creatinine 1.0 (0.8-1.5) mg/dl Est GFR ( Amer) > 60 Est GFR (Non-Af Amer) > 60 Random Glucose 143 H (70-110) mg/dL Calcium 8.4 (8.4-10.5) mg/dL Phosphorus 3.3 (2.5-4.5) mg/dL Magnesium 2.0 (1.7-2.2) mg/dL Total Bilirubin 0.5 (0.2-1.3) mg/dL AST 25 (17-59) U/L ALT 25 (7-56) U/L Alkaline Phosphatase 44 (38-126) U/L Total Protein 5.8 (5.8-8.3) g/dL Albumin 3.0 (3.0-4.8) g/dL Globulin 2.8 gm/dL Albumin/Globulin Ratio 1.1 (1.1-1.8) Urine Color (YELLOW) Urine Appearance (CLEAR) Urine pH (4.7-8.0) Ur Specific [place] (1.005-1.035) Urine Protein (<30 mg/dL) mg/dL Urine Glucose (UA) (NEGATIVE) mg/dL Urine Ketones (NEGATIVE) mg/dL Urine Blood (NEGATIVE) Urine Nitrate (NEGATIVE) Urine Bilirubin (NEGATIVE) Urine Urobilinogen (<1 E.U./dL) E.U./dL Ur Leukocyte Esterase (NEGATIVE) Efrain/uL Urine RBC (0-2) /hpf Urine WBC (0-6) /hpf Ur Epithelial Cells (0-5) /hpf Amorphous Sediment Urine Bacteria (NEG) Urine Other Blood Type Blood Type Confirm O NEGATIVE Antibody Screen BBK History Checked 10/23/17 10/23/17 Range/Units 15:45 14:49 WBC (4.5-11.0) 10^3/ul RBC (3.5-6.1) 10^6/uL Hgb (14.0-18.0) g/dL Hct (42.0-52.0) % MCV (80.0-105.0) fl MCH (25.0-35.0) pg MCHC (31.0-37.0) g/dl RDW (11.5-14.5) % Plt Count (120.0-450.0) 10^3/uL MPV (7.0-11.0) fl Gran % (50.0-68.0) % Lymph % (Auto) (22.0-35.0) % [place] % (Auto) (1.0-6.0) % Eos % (Auto) (1.5-5.0) % Baso % (Auto) (0.0-3.0) % Gran # (1.4-6.5) Lymph # (Auto) (1.2-3.4) [place] # (Auto) (0.1-0.6) Eos # (Auto) (0.0-0.7) Baso # (Auto) (0.0-2.0) K/mm3 Sodium (132-148) mmol/L Potassium (3.6-5.0) mmol/L Chloride (98-107) mmol/L Carbon Dioxide (21-33) mmol/L Anion Gap (10-20) BUN (7-21) mg/dL Creatinine (0.8-1.5) mg/dl Est GFR ( Amer) Est GFR (Non-Af Amer) Random Glucose (70-110) mg/dL Calcium (8.4-10.5) mg/dL Phosphorus (2.5-4.5) mg/dL Magnesium (1.7-2.2) mg/dL Total Bilirubin (0.2-1.3) mg/dL AST (17-59) U/L ALT (7-56) U/L Alkaline Phosphatase (38-126) U/L Total Protein (5.8-8.3) g/dL Albumin (3.0-4.8) g/dL Globulin gm/dL Albumin/Globulin Ratio (1.1-1.8) Urine Color Light yellow (YELLOW) Urine Appearance Cloudy (CLEAR) Urine pH 6.0 (4.7-8.0) Ur Specific [place] 1.015 (1.005-1.035) Urine Protein Trace H (<30 mg/dL) mg/dL Urine Glucose (UA) Negative (NEGATIVE) mg/dL Urine Ketones 15 H (NEGATIVE) mg/dL Urine Blood Trace-intact H (NEGATIVE) Urine Nitrate Negative (NEGATIVE) Urine Bilirubin Negative (NEGATIVE) Urine Urobilinogen 0.2 (<1 E.U./dL) E.U./dL Ur Leukocyte Esterase Negative (NEGATIVE) Efrain/uL Urine RBC 2 - 5 (0-2) /hpf Urine WBC 1 - 3 (0-6) /hpf Ur Epithelial Cells None (0-5) /hpf Amorphous Sediment Moderate Urine Bacteria Large (NEG) Urine Other Uyeast Blood Type O NEGATIVE Blood Type Confirm Antibody Screen Negative BBK History Checked No verified bt Laboratory Results - last 24 hr 10/23/17 10/23/17 10/24/17 14:49 15:45 06:45 WBC 11.1 H RBC 4.25 Hgb 14.3 Hct 42.5 MCV 100.0 MCH 33.6 MCHC 33.6 RDW 13.0 Plt Count 199 MPV 10.4 Gran % 84.1 H Lymph % (Auto) 10.6 L [place] % (Auto) 5.0 Eos % (Auto) 0.1 L Baso % (Auto) 0.2 Gran # 9.35 H Lymph # (Auto) 1.2 [place] # (Auto) 0.6 Eos # (Auto) 0.0 Baso # (Auto) 0.02 Sodium Potassium Chloride Carbon Dioxide Anion Gap BUN Creatinine Est GFR ( Amer) Est GFR (Non-Af Amer) Random Glucose Calcium Phosphorus Magnesium Total Bilirubin AST ALT Alkaline Phosphatase Total Protein Albumin Globulin Albumin/Globulin Ratio Urine Color Light yellow Urine Appearance Cloudy Urine pH 6.0 Ur Specific [place] 1.015 Urine Protein Trace H Urine Glucose (UA) Negative Urine Ketones 15 H Urine Blood Trace-intact H Urine Nitrate Negative Urine Bilirubin Negative Urine Urobilinogen 0.2 Ur Leukocyte Esterase Negative Urine RBC 2 - 5 Urine WBC 1 - 3 Ur Epithelial Cells None Amorphous Sediment Moderate Urine Bacteria Large Urine Other Uyeast Blood Type O NEGATIVE Blood Type Confirm Antibody Screen Negative BBK History Checked No verified bt 10/24/17 10/24/17 06:50 06:50 WBC RBC Hgb Hct MCV MCH MCHC RDW Plt Count MPV Gran % Lymph % (Auto) [place] % (Auto) Eos % (Auto) Baso % (Auto) Gran # Lymph # (Auto) [place] # (Auto) Eos # (Auto) Baso # (Auto) Sodium 136 Potassium 4.0 Chloride 105 Carbon Dioxide 25 Anion Gap 10 BUN 13 Creatinine 1.0 Est GFR ( Amer) > 60 Est GFR (Non-Af Amer) > 60 Random Glucose 143 H Calcium 8.4 Phosphorus 3.3 Magnesium 2.0 Total Bilirubin 0.5 AST 25 ALT 25 Alkaline Phosphatase 44 Total Protein 5.8 Albumin 3.0 Globulin 2.8 Albumin/Globulin Ratio 1.1 Urine Color Urine Appearance Urine pH Ur Specific [place] Urine Protein Urine Glucose (UA) Urine Ketones Urine Blood Urine Nitrate Urine Bilirubin Urine Urobilinogen Ur Leukocyte Esterase Urine RBC Urine WBC Ur Epithelial Cells Amorphous Sediment Urine Bacteria Urine Other Blood Type Blood Type Confirm O NEGATIVE Antibody Screen BBK History Checked Review of Systems - Review of Systems All systems: reviewed and no additional remarkable complaints except Review of Systems: as per HPI Assessment/Plan - Assessment and Plan (Free Text) Assessment: 72 year old male with PMH HTN, GERD, admitted to ICU s/p emergent ex lap for grahm patch closure of duodenal perforation: Neuro: AOx4. No changes in mental status. Continue to monitor. Cardio: Mildly hypertensive. will resume home med benazepril 40 mg PO daily. Monitor. Resp: On RA. Maintain SpO2>96%. GI: s/p emergent exlap with grahm patch closure of duodenal perforation 10/23/[address] Mohan C/w Flagyl and Unasyn dilaudid LUGGAGE ATTENDANT for pain control LR@150 protonix encourage ICS use NGT to suction, monitor output. VALERIA jah in place, monitor output NPO Surgery on board. F/u recs. ID: [id number], mild leukocytosis (trending down). On Flagyl and Unasyn. F/u blood , urine, wound cultures. Endo: Maintain euglycemia. Heme: Stable Hgb. Monitor. Renal: BUN/Cr 13/1.0. Maintain euvolemia, replace lytes. Prophylaxis: protonix, Lovenox sq Case seen and discussed with Dr Maria Elena Velarde. <Maria Elena Velarde - Last Filed: 10/24/17 15:59> CCU Objective - Vital Signs / Intake & Output Vital Signs (Last 4 hours): Vital Signs Pulse 10/24/17 12:37 90 Intake and Output (Last 8hrs): Intake & Output 10/24/17 10/24/17 10/24/17 06:59 14:59 22:59 Intake Total 3745 Output Total 950 Balance 2795 Weight 213 lb Intake: IV 3745 Left Antecubital 1300 Right Antecubital 2445 Oral 0 Output: Drainage 30 VALERIA drain 30 Urine 920 Urethral (Eduardo) 920 Stool 0 - Medications Active Medications: Active Medications Generic Name Dose Route Start Last Admin Trade Name Freq PRN Reason Stop Dose Admin Enoxaparin Sodium 40 mg 10/25/17 10:00 Lovenox SC DAILY TIFFANIE Protocol Lactated Ringer's 1,000 mls @ 150 mls/hr 10/23/17 18:30 10/24/17 08:13 Lactated Ringer's IV 150 mls/hr .Q6H40M TIFFANIE Administration Metronidazole 500 mg in 100 mls @ 100 mls/hr 10/23/17 22:00 10/24/17 13:05 Flagyl IVPB 100 mls/hr Q8 TIFFANIE Administration Protocol Ampicillin Sodium/Sulbactam 100 mls @ 200 mls/hr 10/24/17 00:00 10/24/17 11: 12 Sodium 3 gm/ Sodium Chloride IVPB 200 mls/hr Q6 TIFFANIE Administration Protocol Hydromorphone HCl 25 mls @ 0 mls/hr 10/23/17 18:22 10/23/17 22:16 Dilaudid 0.2 Mg/Ml Principal Consulting Engineer IV 1 mls/hr PRN PRN Administration Pain, moderate (4-7) Protocol Per Protocol Lisinopril 40 mg 10/24/17 14:45 10/24/17 14:59 Zestril PO 40 mg DAILY TIFFANIE Administration Non-Formulary Medication 30 mg 10/24/17 22:00 Temazepam [Restoril] PO HS TIFFANIE Ondansetron HCl 4 mg 10/24/17 15:19 Zofran Inj IVP Q4H PRN Nausea/Vomiting Pantoprazole Sodium 40 mg 10/23/17 22:00 10/24/17 09:40 Protonix Inj IVP 40 mg Q12 TIFFANIE Administration Tamsulosin HCl 0.4 mg 10/24/17 10:00 10/24/17 10:50 Flomax PO 0.4 mg DAILY TIFFANIE Administration - Patient Studies Lab Studies: Microbiology Studies 10/23/17 18:34 Gram Stain - Final Other: Please Indicate Lab Studies 10/24/17 10/24/17 10/24/17 Range/Units 06:50 06:50 06:45 WBC 11.1 H (4.5-11.0) 10^3/ul RBC 4.25 (3.5-6.1) 10^6/uL Hgb 14.3 (14.0-18.0) g/dL Hct 42.5 (42.0-52.0) % MCV 100.0 (80.0-105.0) fl MCH 33.6 (25.0-35.0) pg MCHC 33.6 (31.0-37.0) g/dl RDW 13.0 (11.5-14.5) % Plt Count 199 (120.0-450.0) 10^3/uL MPV 10.4 (7.0-11.0) fl Gran % 84.1 H (50.0-68.0) % Lymph % (Auto) 10.6 L (22.0-35.0) % [place] % (Auto) 5.0 (1.0-6.0) % Eos % (Auto) 0.1 L (1.5-5.0) % Baso % (Auto) 0.2 (0.0-3.0) % Gran # 9.35 H (1.4-6.5) Lymph # (Auto) 1.2 (1.2-3.4) [place] # (Auto) 0.6 (0.1-0.6) Eos # (Auto) 0.0 (0.0-0.7) Baso # (Auto) 0.02 (0.0-2.0) K/mm3 Sodium 136 (132-148) mmol/L Potassium 4.0 (3.6-5.0) mmol/L Chloride 105 (98-107) mmol/L Carbon Dioxide 25 (21-33) mmol/L Anion Gap 10 (10-20) BUN 13 (7-21) mg/dL Creatinine 1.0 (0.8-1.5) mg/dl Est GFR ( Amer) > 60 Est GFR (Non-Af Amer) > 60 Random Glucose 143 H (70-110) mg/dL Calcium 8.4 (8.4-10.5) mg/dL Phosphorus 3.3 (2.5-4.5) mg/dL Magnesium 2.0 (1.7-2.2) mg/dL Total Bilirubin 0.5 (0.2-1.3) mg/dL AST 25 (17-59) U/L ALT 25 (7-56) U/L Alkaline Phosphatase 44 (38-126) U/L Total Protein 5.8 (5.8-8.3) g/dL Albumin 3.0 (3.0-4.8) g/dL Globulin 2.8 gm/dL Albumin/Globulin Ratio 1.1 (1.1-1.8) Urine Color (YELLOW) Urine Appearance (CLEAR) Urine pH (4.7-8.0) Ur Specific [place] (1.005-1.035) Urine Protein (<30 mg/dL) mg/dL Urine Glucose (UA) (NEGATIVE) mg/dL Urine Ketones (NEGATIVE) mg/dL Urine Blood (NEGATIVE) Urine Nitrate (NEGATIVE) Urine Bilirubin (NEGATIVE) Urine Urobilinogen (<1 E.U./dL) E.U./dL Ur Leukocyte Esterase (NEGATIVE) Efrain/uL Urine RBC (0-2) /hpf Urine WBC (0-6) /hpf Ur Epithelial Cells (0-5) /hpf Amorphous Sediment Urine Bacteria (NEG) Urine Other Blood Type Confirm O NEGATIVE 10/23/17 Range/Units 15:45 WBC (4.5-11.0) 10^3/ul RBC (3.5-6.1) 10^6/uL Hgb (14.0-18.0) g/dL Hct (42.0-52.0) % MCV (80.0-105.0) fl MCH (25.0-35.0) pg MCHC (31.0-37.0) g/dl RDW (11.5-14.5) % Plt Count (120.0-450.0) 10^3/uL MPV (7.0-11.0) fl Gran % (50.0-68.0) % Lymph % (Auto) (22.0-35.0) % [place] % (Auto) (1.0-6.0) % Eos % (Auto) (1.5-5.0) % Baso % (Auto) (0.0-3.0) % Gran # (1.4-6.5) Lymph # (Auto) (1.2-3.4) [place] # (Auto) (0.1-0.6) Eos # (Auto) (0.0-0.7) Baso # (Auto) (0.0-2.0) K/mm3 Sodium (132-148) mmol/L Potassium (3.6-5.0) mmol/L Chloride (98-107) mmol/L Carbon Dioxide (21-33) mmol/L Anion Gap (10-20) BUN (7-21) mg/dL Creatinine (0.8-1.5) mg/dl Est GFR ( Amer) Est GFR (Non-Af Amer) Random Glucose (70-110) mg/dL Calcium (8.4-10.5) mg/dL Phosphorus (2.5-4.5) mg/dL Magnesium (1.7-2.2) mg/dL Total Bilirubin (0.2-1.3) mg/dL AST (17-59) U/L ALT (7-56) U/L Alkaline Phosphatase (38-126) U/L Total Protein (5.8-8.3) g/dL Albumin (3.0-4.8) g/dL Globulin gm/dL Albumin/Globulin Ratio (1.1-1.8) Urine Color Light yellow (YELLOW) Urine Appearance Cloudy (CLEAR) Urine pH 6.0 (4.7-8.0) Ur Specific [place] 1.015 (1.005-1.035) Urine Protein Trace H (<30 mg/dL) mg/dL Urine Glucose (UA) Negative (NEGATIVE) mg/dL Urine Ketones 15 H (NEGATIVE) mg/dL Urine Blood Trace-intact H (NEGATIVE) Urine Nitrate Negative (NEGATIVE) Urine Bilirubin Negative (NEGATIVE) Urine Urobilinogen 0.2 (<1 E.U./dL) E.U./dL Ur Leukocyte Esterase Negative (NEGATIVE) Efrain/uL Urine RBC 2 - 5 (0-2) /hpf Urine WBC 1 - 3 (0-6) /hpf Ur Epithelial Cells None (0-5) /hpf Amorphous Sediment Moderate Urine Bacteria Large (NEG) Urine Other Uyeast Blood Type Confirm Laboratory Results - last 24 hr 10/23/17 10/24/17 10/24/17 15:45 06:45 06:50 WBC 11.1 H RBC 4.25 Hgb 14.3 Hct 42.5 MCV 100.0 MCH 33.6 MCHC 33.6 RDW 13.0 Plt Count 199 MPV 10.4 Gran % 84.1 H Lymph % (Auto) 10.6 L [place] % (Auto) 5.0 Eos % (Auto) 0.1 L Baso % (Auto) 0.2 Gran # 9.35 H Lymph # (Auto) 1.2 [place] # (Auto) 0.6 Eos # (Auto) 0.0 Baso # (Auto) 0.02 Sodium Potassium Chloride Carbon Dioxide Anion Gap BUN Creatinine Est GFR ( Amer) Est GFR (Non-Af Amer) Random Glucose Calcium Phosphorus Magnesium Total Bilirubin AST ALT Alkaline Phosphatase Total Protein Albumin Globulin Albumin/Globulin Ratio Urine Color Light yellow Urine Appearance Cloudy Urine pH 6.0 Ur Specific [place] 1.015 Urine Protein Trace H Urine Glucose (UA) Negative Urine Ketones 15 H Urine Blood Trace-intact H Urine Nitrate Negative Urine Bilirubin Negative Urine Urobilinogen 0.2 Ur Leukocyte Esterase Negative Urine RBC 2 - 5 Urine WBC 1 - 3 Ur Epithelial Cells None Amorphous Sediment Moderate Urine Bacteria Large Urine Other Uyeast Blood Type Confirm O NEGATIVE 10/24/17 06:50 WBC RBC Hgb Hct MCV MCH MCHC RDW Plt Count MPV Gran % Lymph % (Auto) [place] % (Auto) Eos % (Auto) Baso % (Auto) Gran # Lymph # (Auto) [place] # (Auto) Eos # (Auto) Baso # (Auto) Sodium 136 Potassium 4.0 Chloride 105 Carbon Dioxide 25 Anion Gap 10 BUN 13 Creatinine 1.0 Est GFR ( Amer) > 60 Est GFR (Non-Af Amer) > 60 Random Glucose 143 H Calcium 8.4 Phosphorus 3.3 Magnesium 2.0 Total Bilirubin 0.5 AST 25 ALT 25 Alkaline Phosphatase 44 Total Protein 5.8 Albumin 3.0 Globulin 2.8 Albumin/Globulin Ratio 1.1 Urine Color Urine Appearance Urine pH Ur Specific [place] Urine Protein Urine Glucose (UA) Urine Ketones Urine Blood Urine Nitrate Urine Bilirubin Urine Urobilinogen Ur Leukocyte Esterase Urine RBC Urine WBC Ur Epithelial Cells Amorphous Sediment Urine Bacteria Urine Other Blood Type Confirm Critical Care Progress Note - Nutrition Nutrition: Nutrition Category Date Time Status NPO Diet [DIET] Diets 10/24/17 Lunch Ordered Addendum Addendum: 10/24/17 15:59 ICU Attending Addendum: Patient seen and examined. Case reviewed on round with housestaff. Agree with resident note above with the following additions/exceptions: 72M hx of HTN, GERD, admitted to ICU s/p emergent ex lap for grahm patch closure of duodenal perforation on 10/23 hemodynamically stable dilaudid [employer] for pain control encourage ICS use on abx as per surg (flagyl unasyn) f/u cultures gi ppx ppi dvt ppx hep sq cont to monitor in ICU for today Maria Elena Velarde MD Payroll Manager
--- NOTE | 2017-10-24 15:31 | RAD ---
Date of service: 10/24/2017 PROCEDURE: Portable film upper abdomen lower chest HISTORY: location of NGT - include upper abdomen COMPARISON: TECHNIQUE: FINDINGS: IMPRESSION: Nasogastric tube can be seen extending beyond the GE junction. The side hole of the catheter is at the level of the diaphragm above the GE junction
[2017-10-24] MEDS ORDERED: Lactated Ringer's 1,000 ML IV SCH (17:45)
[2017-10-24] MEDS: HYDROmorphone 0.2 mg/ml (30ml) 25 ML IV PRN (21:00)
[2017-10-24] MEDS ORDERED: Non Formulary Medication (Temazepam [Restoril] 30 MG) PO SCH ×4 (22:00→22:29)
[2017-10-24] MEDS ORDERED: metroNIDAZOLE IV 500 mg/100 ml 500 MG/100 ML BAG IVPB ONE (22:30)
[2017-10-24] MEDS ORDERED: Sodium Chloride 0.9% 1,000 ML IV STA (23:30)
[2017-10-25] MEDS: Lactated Ringer's 1,000 ML IV SCH ×4 (04:12→18:46)
[2017-10-25 07:09] LABS: ALBUMIN 2.9 g/dL (3.0-4.8); ALT/SGPT 21 U/L (7-56); AST/SGOT 22 U/L (17-59); BASO # 0.02 K/mm3 (0.0-2.0); BASO % 0.2 % (0.0-3.0); BLOOD UREA NITROGEN 15 mg/dL (7-21); CALCIUM 8.5 mg/dL (8.4-10.5); EOS # 0.8 (0.0-0.7); EOS % 6.6 % (1.5-5.0); GFR NON-AFRICAN AMERICAN > 60; GRAN # 9.39 (1.4-6.5); GRAN % 75.9 % (50.0-68.0); HEMOGLOBIN 13.7 g/dL (14.0-18.0); LYMPH # 1.7 (1.2-3.4); LYMPH % 13.6 % (22.0-35.0); MEAN CELL VOLUME 101.7 fl (80.0-105.0); MEAN CORPUSCULAR HEMOGLOBIN 33.7 pg (25.0-35.0); MEAN CORPUSCULAR HGB CONC 33.1 g/dl (31.0-37.0); MEAN PLATELET VOLUME 10.3 fl (7.0-11.0); MONO # 0.5 (0.1-0.6); MONO % 3.7 % (1.0-6.0); RBC 4.07 10^6/uL (3.5-6.1); RED CELL DISTRIBUTION WIDTH 13.1 % (11.5-14.5); WHITE BLOOD COUNT 12.4 10^3/ul (4.5-11.0)
[2017-10-25] MEDS ORDERED: Benzocaine/Menthol (Cepacol) Lozenge MT PRN (07:28)
[2017-10-25] MEDS ORDERED: Potassium Phosphate 15 MMOLE in Dextrose 5% In Water 250 ML IVPB ONE (07:39)
[2017-10-25] MEDS ORDERED: Potassium Phosphate 15 MMOLE in Sodium Chloride 0.9% 250 ML IVPB ONE (07:45)
--- NOTE | 2017-10-25 08:22 | PN ---
DATE: 10/24/2017 DAILY PROGRESS NOTE SUBJECTIVE: The patient is a 72-year-old male with a history of hypertension, who developed abdominal pain, it was rather severe, was presented to the satellite emergency room of [facility] on [address] in [place] and there his workup showed he had a perforated duodenal ulcer. The patient chose to be admitted to [facility]. He was therefore transferred to our Emergency Department and admitted to the Intensive Care Unit. He underwent surgery by Dr. Addison Mohan and a perforated duodenal diverticulum was repaired. When seen, the patient is in the Intensive Care Unit. His is at bedside and G-tube is in place. The patient is feeling somewhat uncomfortable from his surgical wound and from the NG tube; however, he is able to tolerate it. PHYSICAL EXAMINATION: LUNGS: Clear anteriorly and laterally. HEART: Regular. EXTREMITIES: Free of cyanosis, clubbing or edema. LABORATORY DATA: Laboratory studies show his white blood cell count is 11.1, hemoglobin and hematocrit of 14.3 and 42.5, platelet count is 195. Sodium is 136, potassium 4, blood urea nitrogen 13, creatinine 1, glucose is 143. The blood pressure is 167/97, heart rate is 92 beats per minute. Amylase and lipase are negative. Liver enzymes are negative. ASSESSMENT AND PLAN: So the patient tolerated the surgical procedure well. We will be following the patient closely through his postop course. Of note, the patient was found to have O negative type blood. Mark Palm MD
[2017-10-25] MEDS: Enoxaparin 40 mg Syringe SC SCH (09:40)
--- NOTE | 2017-10-25 10:05 | CP.CCUPN ---
<Helene Hancockah - Last Filed: 10/25/17 12:10> CCU Subjective - Physician Review Subjective (Free Text): ICU progress note for Dr. Olguin Patient seen and examined this am at bedside. ROSALBA per nursing. He is resting comfortably in bed on exam. He denies MEHTA, CP, SOB worsening abdominal pain, N/ V. He does endorse mild incisional pain. 10/25/17 10:02 CCU Objective - Vital Signs / Intake & Output Vital Signs (Last 4 hours): Vital Signs Pulse Resp BP Pulse Ox 10/25/17 07:39 82 18 146/81 10/25/17 07:00 79 146/81 93 L 10/25/17 06:22 92 H Intake and Output (Last 8hrs): Intake & Output 10/24/17 10/25/17 10/25/17 22:59 06:59 14:59 Intake Total 2425 8200 Output Total 910 1330 Balance 1515 6870 Intake: IV 2425 8200 Bilateral Hand 1200 1200 Left Hand 5800 Right Antecubital 1200 1200 Oral 0 Output: Drainage 435 230 VALERIA drain 435 230 Urine 475 1100 Urethral (Eduardo) 350 600 Urine, Voided 125 500 Stool 0 - Physical Exam Head: Positive for: Atraumatic, Normocephalic Pupils: Positive for: PERRL. Negative for: Sluggish, Non-Reactive, Pinpoint Extroacular Muscles: Positive for: EOMI Conjunctiva: Positive for: Normal Mouth: Positive for: Moist Mucous Membranes Neck: Positive for: Normal Range of Motion Respiratory/Chest: Positive for: Clear to Auscultation, Good Air Exchange. Negative for: Respiratory Distress, Accessory Muscle Use, Wheezes Cardiovascular: Positive for: Regular Rate and Rhythm, Normal S1, S2. Negative for: Irregular Rhythm Abdomen: Positive for: Tenderness (appropriate postoperative incisional tenderness), Other (covered in abdominal binder, c/d/i, jah drain 665 cc over last 24 SS). Negative for: Distention, Normal Bowel Sounds, Guarding Lower Extremity: Positive for: Normal Inspection. Negative for: Edema Neurological: Positive for: GCS=15, CN II-XII Intact, Speech Normal Skin: Positive for: Warm, Dry, Normal Color Psychiatric: Positive for: Alert, Oriented x 3 - Medications Active Medications: Active Medications Generic Name Dose Route Start Last Admin Trade Name Freq PRN Reason Stop Dose Admin Benzocaine/Menthol 1 darlin 10/25/17 07:28 Cepacol Sore Throat MT Q2H PRN Sore Throat Enoxaparin Sodium 40 mg 10/25/17 10:00 10/25/17 09:40 Lovenox SC 40 mg DAILY TIFFANIE Administration Protocol Lactated Ringer's 1,000 mls @ 150 mls/hr 10/23/17 18:30 10/25/17 04:15 Lactated Ringer's IV 150 mls/hr .Q6H40M TIFFANIE Administration Hydromorphone HCl 25 mls @ 0 mls/hr 10/23/17 18:22 10/24/17 21:00 Dilaudid 0.2 Mg/Ml Watershed Engineer IV 1 mls/hr PRN PRN Administration Pain, moderate (4-7) Protocol Per Protocol Potassium Phosphate 15 mmole/ 255 mls @ 42.5 mls/hr 10/25/17 07:45 10/25/17 09:25 Sodium Chloride IVPB 10/25/17 13:44 42.5 mls/hr ONCE ONE Administration Lisinopril 40 mg 10/24/17 14:45 10/25/17 09:37 Zestril PO 40 mg DAILY TIFFANIE Administration Non-Formulary Medication 30 mg 10/25/17 22:00 Temazepam [Restoril] PO HS TIFFANIE Ondansetron HCl 4 mg 10/24/17 15:19 Zofran Inj IVP Q4H PRN Nausea/Vomiting Pantoprazole Sodium 40 mg 10/23/17 22:00 10/25/17 09:36 Protonix Inj IVP 40 mg Q12 TIFFANIE Administration Tamsulosin HCl 0.4 mg 10/24/17 10:00 10/25/17 09:38 Flomax PO 0.4 mg DAILY TIFFANIE Administration - Patient Studies Lab Studies: Microbiology Studies 10/23/17 18:34 Gram Stain - Final Other: Please Indicate Lab Studies 10/25/17 10/25/17 Range/Units 05:45 05:45 WBC 12.4 H (4.5-11.0) 10^3/ul RBC 4.07 (3.5-6.1) 10^6/uL Hgb 13.7 L (14.0-18.0) g/dL Hct 41.4 L (42.0-52.0) % MCV 101.7 (80.0-105.0) fl MCH 33.7 (25.0-35.0) pg MCHC 33.1 (31.0-37.0) g/dl RDW 13.1 (11.5-14.5) % Plt Count 191 (120.0-450.0) 10^3/uL MPV 10.3 (7.0-11.0) fl Gran % 75.9 H (50.0-68.0) % Lymph % (Auto) 13.6 L (22.0-35.0) % [place] % (Auto) 3.7 (1.0-6.0) % Eos % (Auto) 6.6 H (1.5-5.0) % Baso % (Auto) 0.2 (0.0-3.0) % Gran # 9.39 H (1.4-6.5) Lymph # (Auto) 1.7 (1.2-3.4) [place] # (Auto) 0.5 (0.1-0.6) Eos # (Auto) 0.8 H (0.0-0.7) Baso # (Auto) 0.02 (0.0-2.0) K/mm3 Sodium 136 (132-148) mmol/L Potassium 4.2 (3.6-5.0) mmol/L Chloride 104 (98-107) mmol/L Carbon Dioxide 27 (21-33) mmol/L Anion Gap 10 (10-20) BUN 15 (7-21) mg/dL Creatinine 0.9 (0.8-1.5) mg/dl Est GFR ( Amer) > 60 Est GFR (Non-Af Amer) > 60 Random Glucose 102 (70-110) mg/dL Calcium 8.5 (8.4-10.5) mg/dL Phosphorus 2.4 L (2.5-4.5) mg/dL Magnesium 2.0 (1.7-2.2) mg/dL Total Bilirubin 0.4 (0.2-1.3) mg/dL AST 22 (17-59) U/L ALT 21 (7-56) U/L Alkaline Phosphatase 51 (38-126) U/L Total Protein 5.8 (5.8-8.3) g/dL Albumin 2.9 L (3.0-4.8) g/dL Globulin 2.9 gm/dL Albumin/Globulin Ratio 1.0 L (1.1-1.8) Laboratory Results - last 24 hr 10/25/17 10/25/17 05:45 05:45 WBC 12.4 H RBC 4.07 Hgb 13.7 L Hct 41.4 L MCV 101.7 MCH 33.7 MCHC 33.1 RDW 13.1 Plt Count 191 MPV 10.3 Gran % 75.9 H Lymph % (Auto) 13.6 L [place] % (Auto) 3.7 Eos % (Auto) 6.6 H Baso % (Auto) 0.2 Gran # 9.39 H Lymph # (Auto) 1.7 [place] # (Auto) 0.5 Eos # (Auto) 0.8 H Baso # (Auto) 0.02 Sodium 136 Potassium 4.2 Chloride 104 Carbon Dioxide 27 Anion Gap 10 BUN 15 Creatinine 0.9 Est GFR ( Amer) > 60 Est GFR (Non-Af Amer) > 60 Random Glucose 102 Calcium 8.5 Phosphorus 2.4 L Magnesium 2.0 Total Bilirubin 0.4 AST 22 ALT 21 Alkaline Phosphatase 51 Total Protein 5.8 Albumin 2.9 L Globulin 2.9 Albumin/Globulin Ratio 1.0 L Review of Systems - Review of Systems All systems: reviewed and no additional remarkable complaints except Review of Systems: as per HPI Critical Care Progress Note - Prophylaxis GI Prophylaxis GI: PPI - Prophylaxis DVT Prophylaxis DVT: Lovenox, SCDs - Nutrition Nutrition: Nutrition Category Date Time Status NPO Diet [DIET] Diets 10/24/17 Lunch Ordered Assessment/Plan - Assessment and Plan (Free Text) Assessment: 72 year old male with PMH HTN, GERD, admitted to ICU s/p emergent ex lap for grahm patch closure of duodenal perforation, recovering well, denies N/V, denies BM and flatus. Clear for transfer from ICU today. Plan: Neuro: - AOx4. No changes in mental status. - Continue to monitor. Cardio: -Mildly hypertensive. - continue lisinopril -Monitor. Resp: -On RA. Maintain SpO2>96%. GI: -s/p emergent exlap with grahm patch closure of duodenal perforation 10/23/[address] Mohan -C/w Flagyl and Unasyn -dilaudid TUBE REPAIRER for pain control -LR@150 -encourage ICS use -NGT to suction, monitor output. -jah in place, monitor output -NPO -Surgery on board. F/u recs. ID: -afebrile, mild leukocytosis (trending down). On Flagyl and Unasyn. F/u blood, urine, wound cultures. Endo: -Maintain euglycemia. Heme: -Stable Hgb. Monitor. Renal: -BUN/Cr 15/0.9. Maintain euvolemia, replace lytes. Prophylaxis: -protonix, Lovenox sq Seen and discussed with Dr. Clau Hancock, PGY1 - Date & Time Date: 10/25/17 Time: 07:30 <Manjeet Olguin - Last Filed: 10/25/17 14:52> CCU Objective - Vital Signs / Intake & Output Intake and Output (Last 8hrs): Intake & Output 10/24/17 10/25/17 10/25/17 22:59 06:59 14:59 Intake Total 2425 8200 Output Total 910 1330 Balance 1515 6870 Intake: IV 2425 8200 Bilateral Hand 1200 1200 Left Hand 5800 Right Antecubital 1200 1200 Oral 0 Output: Drainage 435 230 VALERIA drain 435 230 Urine 475 1100 Urethral (Eduardo) 350 600 Urine, Voided 125 500 Stool 0 - Medications Active Medications: Active Medications Generic Name Dose Route Start Last Admin Trade Name Freq PRN Reason Stop Dose Admin Benzocaine/Menthol 1 darlin 10/25/17 07:28 Cepacol Sore Throat MT Q2H PRN Sore Throat Enoxaparin Sodium 40 mg 10/25/17 10:00 10/25/17 09:40 Lovenox SC 40 mg DAILY TIFFANIE Administration Protocol Lactated Ringer's 1,000 mls @ 150 mls/hr 10/23/17 18:30 10/25/17 04:15 Lactated Ringer's IV 150 mls/hr .Q6H40M TIFFANIE Administration Hydromorphone HCl 25 mls @ 0 mls/hr 10/23/17 18:22 10/24/17 21:00 Dilaudid 0.2 Mg/Ml Watershed Engineer IV 1 mls/hr PRN PRN Administration Pain, moderate (4-7) Protocol Per Protocol Metronidazole 500 mg in 100 mls @ 100 mls/hr 10/25/17 14:00 Flagyl IVPB 10/29/17 12:23 Q8 TIFFANIE Protocol Ampicillin Sodium/Sulbactam 100 mls @ 200 mls/hr 10/25/17 18:00 Sodium 3 gm/ Sodium Chloride IVPB 10/29/17 12:22 Q6 TIFFANIE Protocol Lisinopril 40 mg 10/24/17 14:45 10/25/17 09:37 Zestril PO 40 mg DAILY TIFFANIE Administration Non-Formulary Medication 30 mg 10/25/17 22:00 Temazepam [Restoril] PO HS TIFFANIE Ondansetron HCl 4 mg 10/24/17 15:19 Zofran Inj IVP Q4H PRN Nausea/Vomiting Pantoprazole Sodium 40 mg 10/23/17 22:00 10/25/17 09:36 Protonix Inj IVP 40 mg Q12 TIFFANIE Administration Tamsulosin HCl 0.4 mg 10/24/17 10:00 10/25/17 09:38 Flomax PO 0.4 mg DAILY TIFFANIE Administration - Patient Studies Lab Studies: Microbiology Studies 10/23/17 15:45 Urine Culture - Final Urine No Growth (<1,000 CFU/ML) 10/23/17 18:34 Gram Stain - Final Other: Please Indicate Lab Studies 10/25/17 10/25/17 Range/Units 05:45 05:45 WBC 12.4 H (4.5-11.0) 10^3/ul RBC 4.07 (3.5-6.1) 10^6/uL Hgb 13.7 L (14.0-18.0) g/dL Hct 41.4 L (42.0-52.0) % MCV 101.7 (80.0-105.0) fl MCH 33.7 (25.0-35.0) pg MCHC 33.1 (31.0-37.0) g/dl RDW 13.1 (11.5-14.5) % Plt Count 191 (120.0-450.0) 10^3/uL MPV 10.3 (7.0-11.0) fl Gran % 75.9 H (50.0-68.0) % Lymph % (Auto) 13.6 L (22.0-35.0) % [place] % (Auto) 3.7 (1.0-6.0) % Eos % (Auto) 6.6 H (1.5-5.0) % Baso % (Auto) 0.2 (0.0-3.0) % Gran # 9.39 H (1.4-6.5) Lymph # (Auto) 1.7 (1.2-3.4) [place] # (Auto) 0.5 (0.1-0.6) Eos # (Auto) 0.8 H (0.0-0.7) Baso # (Auto) 0.02 (0.0-2.0) K/mm3 Sodium 136 (132-148) mmol/L Potassium 4.2 (3.6-5.0) mmol/L Chloride 104 (98-107) mmol/L Carbon Dioxide 27 (21-33) mmol/L Anion Gap 10 (10-20) BUN 15 (7-21) mg/dL Creatinine 0.9 (0.8-1.5) mg/dl Est GFR ( Amer) > 60 Est GFR (Non-Af Amer) > 60 Random Glucose 102 (70-110) mg/dL Calcium 8.5 (8.4-10.5) mg/dL Phosphorus 2.4 L (2.5-4.5) mg/dL Magnesium 2.0 (1.7-2.2) mg/dL Total Bilirubin 0.4 (0.2-1.3) mg/dL AST 22 (17-59) U/L ALT 21 (7-56) U/L Alkaline Phosphatase 51 (38-126) U/L Total Protein 5.8 (5.8-8.3) g/dL Albumin 2.9 L (3.0-4.8) g/dL Globulin 2.9 gm/dL Albumin/Globulin Ratio 1.0 L (1.1-1.8) Laboratory Results - last 24 hr 10/25/17 10/25/17 05:45 05:45 WBC 12.4 H RBC 4.07 Hgb 13.7 L Hct 41.4 L MCV 101.7 MCH 33.7 MCHC 33.1 RDW 13.1 Plt Count 191 MPV 10.3 Gran % 75.9 H Lymph % (Auto) 13.6 L [place] % (Auto) 3.7 Eos % (Auto) 6.6 H Baso % (Auto) 0.2 Gran # 9.39 H Lymph # (Auto) 1.7 [place] # (Auto) 0.5 Eos # (Auto) 0.8 H Baso # (Auto) 0.02 Sodium 136 Potassium 4.2 Chloride 104 Carbon Dioxide 27 Anion Gap 10 BUN 15 Creatinine 0.9 Est GFR ( Amer) > 60 Est GFR (Non-Af Amer) > 60 Random Glucose 102 Calcium 8.5 Phosphorus 2.4 L Magnesium 2.0 Total Bilirubin 0.4 AST 22 ALT 21 Alkaline Phosphatase 51 Total Protein 5.8 Albumin 2.9 L Globulin 2.9 Albumin/Globulin Ratio 1.0 L Critical Care Progress Note - Nutrition Nutrition: Nutrition Category Date Time Status NPO Diet [DIET] Diets 10/24/17 Lunch Ordered Assessment/Plan - Assessment and Plan (Free Text) Plan: Patient seen and examined on rounds with resident, agree with note with following additions/exceptions: Patient is 72 year old male with PMH HTN, GERD, admitted to ICU s/p emergent ex lap for grahm patch closure of duodenal perforation. Currently afebrile, BP stable, comfortable in NAD, doing well. NGT in place. Surgery following, OK for transfer Cont with IVF hydration, NPO, pain control Would Hold ACEI for now IS, jimmy PRN, OOB to chair GI ppx, DVT pp Transfer to med surg
--- NOTE | 2017-10-25 10:41 | CP.PCM.PN ---
Subjective - Date & Time of Evaluation Date of Evaluation: 10/25/17 Time of Evaluation: 06:00 - Subjective Subjective: General Surgery Progress Note for Dr. Mohan This 72M was seen and examined this AM at bedside no acute events overnight. NGT with minimal output, VALERIA high volume serosanguinous output. Pt reports he is feeling better however complains of soreness from NGT. Denies flatus or BM. Denies chest pain or SOB. Objective - Vital Signs/Intake and Output Vital Signs (last 24 hours): Temp Pulse Resp BP Pulse Ox 98.2 F 82 18 146/81 93 L 10/25/17 04:00 10/25/17 07:39 10/25/17 07:39 10/25/17 07:39 10/25/17 07:00 Intake and Output: 10/25/17 10/25/17 06:59 18:59 Intake Total 72454 Output Total 2240 Balance 8385 - Medications Medications: Current Medications Benzocaine/Menthol (Cepacol Sore Throat) 1 darlin MT Q2H PRN PRN Reason: Sore Throat Enoxaparin Sodium (Lovenox) 40 mg SC DAILY [facility] PRN Reason: Protocol Last Admin: 10/25/17 09:40 Dose: 40 mg Lactated Ringer's (Lactated Ringer's) 1,000 mls @ 150 mls/hr IV .Q6H40M [facility] Last Admin: 10/25/17 04:15 Dose: 150 mls/hr Hydromorphone HCl (Dilaudid 0.2 Mg/Ml Kettle Tender) 25 mls @ 0 mls/hr IV PRN PRN; Protocol; Per Protocol PRN Reason: Pain, moderate (4-7) Last Admin: 10/24/17 21:00 Dose: 1 mls/hr Potassium Phosphate 15 mmole/ (Sodium Chloride) 255 mls @ 42.5 mls/hr IVPB ONCE ONE Stop: 10/25/17 13:44 Last Admin: 10/25/17 09:25 Dose: 42.5 mls/hr Lisinopril (Zestril) 40 mg PO DAILY [facility] Last Admin: 10/25/17 09:37 Dose: 40 mg Non-Formulary Medication (Temazepam [Restoril]) 30 mg PO HS [facility] Ondansetron HCl (Zofran Inj) 4 mg IVP Q4H PRN PRN Reason: Nausea/Vomiting Pantoprazole Sodium (Protonix Inj) 40 mg IVP Q12 TIFFANIE Last Admin: 10/25/17 09:36 Dose: 40 mg Tamsulosin HCl (Flomax) 0.4 mg PO DAILY TIFFANIE Last Admin: 10/25/17 09:38 Dose: 0.4 mg - Labs Labs: 10/25/17 05:45 10/25/17 05:45 PT 11.7 SECONDS (9.4-12.5) 10/23/17 14:25 INR 1.02 10/23/17 14:25 APTT 26.1 Seconds (25.1-36.5) 10/23/17 14:25 - Constitutional Appears: Non-toxic, No Acute Distress - Head Exam Head Exam: ATRAUMATIC, NORMAL INSPECTION, NORMOCEPHALIC - Eye Exam Eye Exam: EOMI - ENT Exam ENT Exam: Mucous Membranes Moist - Respiratory Exam Respiratory Exam: NORMAL BREATHING PATTERN - Cardiovascular Exam Cardiovascular Exam: +S1, +S2 - GI/Abdominal Exam GI & Abdominal Exam: Soft. absent: Distended, Firm, Guarding, Tenderness Additional comments: VALERIA with serosang, wound well approximated non tender non erthematous non draining - Neurological Exam Neurological Exam: Alert, Awake - Psychiatric Exam Psychiatric exam: Normal Affect, Normal Mood - Skin Skin Exam: Dry, Intact Assessment and Plan - Assessment and Plan (Free Text) Assessment: 72 yo M w/ perforated duodenal ulcer s/p Ex Lap w/ omental patch repair, POD #2 -Continue NGT to low cont suction, clamp for medications prn -OOB to chair -Physical therapy -DVT prophylaxis -Ok to downgrade to floor DW Dr Mohan [phone]
[2017-10-25] MEDS: metroNIDAZOLE IV 500 mg/100 ml 500 MG/100 ML BAG IVPB SCH ×2 (15:33→21:26)
[2017-10-25] MEDS ORDERED: HYDROmorphone 0.5 mg/0.5 ml ISec IVP PRN (19:08)
--- NOTE | 2017-10-25 21:25 | PN ---
DATE: 10/25/2017 DAILY PROGRESS NOTE SUBJECTIVE: The patient was seen this Morning in Coronary Care Unit, bed 5 with his at the bedside. He was evaluated in the chair with his nurse in the room attending to him. He is awake, alert. NG tube is in place. He says that he has felt no bowel sounds, has not passed any gas as of yet. Surgical pain is managed reasonably. PHYSICAL EXAMINATION: LUNGS: Show good aeration, right and left. HEART: Regular. No tachycardic. EXTREMITIES: Show no edema. ASSESSMENT AND PLAN: Incentive spirometry is at the bedside. Morning labs will be reviewed. Continue current postop course. May be able to leave the ICU as early as tomorrow with surgical followup. I explained to the patient and his he may be home over or soon after the coming weekend, but that will depend on how soon his bowels are waken. Addison Palm MD
[2017-10-25] MEDS ORDERED: Non Formulary Medication (Temazepam [Restoril] 30 MG) PO SCH (22:00)
[2017-10-25] MEDS: Non Formulary Medication (Temazepam [Restoril] 30 MG) PO SCH (22:38)
[2017-10-26] MEDS: metroNIDAZOLE IV 500 mg/100 ml 500 MG/100 ML BAG IVPB SCH ×3 (05:41→22:14)
[2017-10-26 08:25] LABS: BASO # 0.01 K/mm3 (0.0-2.0); BASO % 0.1 % (0.0-3.0); EOS # 0.6 (0.0-0.7); GRAN # 9.48 (1.4-6.5); GRAN % 77.8 % (50.0-68.0); HEMOGLOBIN 12.7 g/dL (14.0-18.0); LYMPH # 1.4 (1.2-3.4); LYMPH % 11.4 % (22.0-35.0); MEAN CELL VOLUME 97.6 fl (80.0-105.0); MEAN CORPUSCULAR HGB CONC 34.9 g/dl (31.0-37.0); MEAN PLATELET VOLUME 10.4 fl (7.0-11.0); MONO # 0.7 (0.1-0.6); MONO % 5.7 % (1.0-6.0); RBC 3.73 10^6/uL (3.5-6.1); RED CELL DISTRIBUTION WIDTH 12.6 % (11.5-14.5); WHITE BLOOD COUNT 12.2 10^3/ul (4.5-11.0)
[2017-10-26 08:40] LABS: ALBUMIN 2.7 g/dL (3.0-4.8); ALT/SGPT 26 U/L (7-56); AST/SGOT 20 U/L (17-59); BLOOD UREA NITROGEN 11 mg/dL (7-21); CALCIUM 8.3 mg/dL (8.4-10.5); GFR NON-AFRICAN AMERICAN > 60
[2017-10-26] MEDS: Enoxaparin 40 mg Syringe SC SCH (09:23)
[2017-10-26] MEDS: Lactated Ringer's 1,000 ML IV SCH (11:45)
[2017-10-26] MEDS ORDERED: Methylene Blue 10 mg/ml (1ml) Inj PEG ONE (13:06)
[2017-10-26] MEDS ORDERED: Potassium Chloride 40 mEq/30 ml LIQ UD PO ONE (13:09)
--- NOTE | 2017-10-26 13:35 | CP.PCM.PN ---
Subjective - Date & Time of Evaluation Date of Evaluation: 10/26/17 Time of Evaluation: 13:29 - Subjective Subjective: General Surgery Progress Note for Dr. Mohan This 72M was seen and examined this AM at bedside no acute events overnight. Minimal NGT output diluted due to PO ice chips. Drain with 110 cc serosang overnight. Denies flatus or BM. Denies fevers chills chest pain nausea vomiting. Objective - Vital Signs/Intake and Output Vital Signs (last 24 hours): Temp Pulse Resp BP Pulse Ox 97.7 F 96 H 18 168/103 H 92 L 10/26/17 06:00 10/26/17 06:00 10/26/17 06:00 10/26/17 10:29 10/26/17 06:00 Intake and Output: 10/26/17 10/26/17 06:59 18:59 Intake Total 1800 Output Total 760 Balance 1040 - Medications Medications: Current Medications Benzocaine/Menthol (Cepacol Sore Throat) 1 darlin MT Q2H PRN PRN Reason: Sore Throat Enoxaparin Sodium (Lovenox) 40 mg SC DAILY [facility] PRN Reason: Protocol Last Admin: 10/26/17 09:23 Dose: 40 mg Hydromorphone HCl (Dilaudid) 0.5 mg IVP Q3H PRN PRN Reason: Pain, severe (8-10) Lactated Ringer's (Lactated Ringer's) 1,000 mls @ 150 mls/hr IV .Q6H40M [facility] Last Admin: 10/26/17 11:45 Dose: 150 mls/hr Metronidazole (Flagyl) 500 mg in 100 mls @ 100 mls/hr IVPB Q8 TIFFANIE PRN Reason: Protocol Stop: 10/29/17 12:23 Last Admin: 10/26/17 05:41 Dose: 100 mls/hr Ampicillin Sodium/Sulbactam (Sodium 3 gm/ Sodium Chloride) 100 mls @ 200 mls/ hr IVPB Q6 [facility] PRN Reason: Protocol Stop: 10/29/17 12:22 Last Admin: 10/26/17 11:45 Dose: 200 mls/hr Lisinopril (Zestril) 40 mg PO DAILY [facility] Last Admin: 10/26/17 06:46 Dose: 40 mg Non-Formulary Medication (Temazepam [Restoril]) 30 mg PO HS [facility] Last Admin: 10/25/17 22:38 Dose: 30 mg Ondansetron HCl (Zofran Inj) 4 mg IVP Q4H PRN PRN Reason: Nausea/Vomiting Pantoprazole Sodium (Protonix Inj) 40 mg IVP Q12 [facility] Last Admin: 10/26/17 09:23 Dose: 40 mg Tamsulosin HCl (Flomax) 0.4 mg PO DAILY [facility] Last Admin: 10/26/17 09:23 Dose: 0.4 mg - Labs Labs: 10/26/17 08:00 10/26/17 08:00 PT 11.7 SECONDS (9.4-12.5) 10/23/17 14:25 INR 1.02 10/23/17 14:25 APTT 26.1 Seconds (25.1-36.5) 10/23/17 14:25 - Constitutional Appears: Non-toxic, No Acute Distress - Head Exam Head Exam: ATRAUMATIC, NORMOCEPHALIC - Eye Exam Eye Exam: EOMI, Normal appearance - ENT Exam ENT Exam: Mucous Membranes Moist - Respiratory Exam Respiratory Exam: NORMAL BREATHING PATTERN - Cardiovascular Exam Cardiovascular Exam: +S1, +S2 - GI/Abdominal Exam GI & Abdominal Exam: Soft. absent: Distended, Firm, Guarding, Rigid, Tenderness - Neurological Exam Neurological Exam: Alert, Awake - Psychiatric Exam Psychiatric exam: Normal Affect, Normal Mood - Skin Skin Exam: Dry, Intact Assessment and Plan - Assessment and Plan (Free Text) Assessment: 72M POD#3 s/p exlap and gram patch Clamp NGT PO trial with methylene blue Possible advance to clears D/W Dr. Marques Griffith PGY3
[2017-10-26] MEDS: Non Formulary Medication (Temazepam [Restoril] 30 MG) PO SCH (22:15)
--- NOTE | 2017-10-27 00:08 | PN ---
DATE: 10/26/2017 SUBJECTIVE: Patient was seen this Sunday morning in room 569, bed 1. He is doing very well in good spirits. NG tube remains in place. On physical exam, I hear some bowel sounds present, is slow but very much present. Patient reports no flatus as of yet. ASSESSMENT AND PLAN: He is scheduled for a blue dye installation into the NG tube to see if there is any leak via the Gustavo-Quintero. Case was discussed with Surgery, Dr. Addison Mohan and the surgical team. He is doing well. Hopefully, we will be able to advance his diet and discontinue the NG tube soon. Addison Palm MD
[2017-10-27] MEDS: metroNIDAZOLE IV 500 mg/100 ml 500 MG/100 ML BAG IVPB SCH ×3 (06:48→22:13)
[2017-10-27 07:59] LABS: BASO # 0.02 K/mm3 (0.0-2.0); BASO % 0.2 % (0.0-3.0); EOS # 0.5 (0.0-0.7); EOS % 3.9 % (1.5-5.0); GRAN # 8.04 (1.4-6.5); GRAN % 70.4 % (50.0-68.0); LYMPH # 1.8 (1.2-3.4); LYMPH % 15.9 % (22.0-35.0); MEAN CELL VOLUME 96.2 fl (80.0-105.0); MEAN CORPUSCULAR HEMOGLOBIN 33.2 pg (25.0-35.0); MEAN CORPUSCULAR HGB CONC 34.5 g/dl (31.0-37.0); MEAN PLATELET VOLUME 10.3 fl (7.0-11.0); MONO # 1.1 (0.1-0.6); MONO % 9.6 % (1.0-6.0); RBC 3.92 10^6/uL (3.5-6.1); RED CELL DISTRIBUTION WIDTH 12.6 % (11.5-14.5); WHITE BLOOD COUNT 11.4 10^3/ul (4.5-11.0)
[2017-10-27 08:24] LABS: ALBUMIN 2.8 g/dL (3.0-4.8); ALT/SGPT 21 U/L (7-56); AST/SGOT 20 U/L (17-59); BLOOD UREA NITROGEN 9 mg/dL (7-21); CALCIUM 8.5 mg/dL (8.4-10.5); GFR NON-AFRICAN AMERICAN > 60
[2017-10-27] MEDS: Lactated Ringer's 1,000 ML IV SCH ×3 (09:10→21:45)
[2017-10-27] MEDS: Enoxaparin 40 mg Syringe SC SCH (10:44)
--- NOTE | 2017-10-27 15:09 | CP.PCM.PN ---
Subjective - Date & Time of Evaluation Date of Evaluation: 10/27/17 Time of Evaluation: 15:06 - Subjective Subjective: General Surgery Progress Note for Dr. Mohan This 72M was seen and examined this AM at bedside no acute vents reported overnight. He reports he is tolerating clears. he denies any fevers chills chest pain nausea vomiting or diarrhea. Reports flatus denies BM. Reports he is ambulating. VALERIA with serous output. Objective - Vital Signs/Intake and Output Vital Signs (last 24 hours): Temp Pulse Resp BP Pulse Ox 98.3 F 90 18 137/86 94 L 10/27/17 08:16 10/27/17 10:53 10/27/17 08:16 10/27/17 10:53 10/27/17 08:16 Intake and Output: 10/27/17 10/27/17 06:59 18:59 Intake Total 120 500 Output Total 225 300 Balance -105 200 - Medications Medications: Current Medications Benzocaine/Menthol (Cepacol Sore Throat) 1 darlin MT Q2H PRN PRN Reason: Sore Throat Clonidine HCl (Catapres) 0.1 mg PO BID [facility] Last Admin: 10/27/17 10:53 Dose: 0.1 mg Enoxaparin Sodium (Lovenox) 40 mg SC DAILY [facility] PRN Reason: Protocol Last Admin: 10/27/17 10:44 Dose: 40 mg Hydromorphone HCl (Dilaudid) 0.5 mg IVP Q3H PRN PRN Reason: Pain, severe (8-10) Metronidazole (Flagyl) 500 mg in 100 mls @ 100 mls/hr IVPB Q8 [facility] PRN Reason: Protocol Stop: 10/29/17 12:23 Last Admin: 10/27/17 13:13 Dose: 100 mls/hr Ampicillin Sodium/Sulbactam (Sodium 3 gm/ Sodium Chloride) 100 mls @ 200 mls/ hr IVPB Q6 [facility] PRN Reason: Protocol Stop: 10/29/17 12:22 Last Admin: 10/27/17 12:45 Dose: 200 mls/hr Lisinopril (Zestril) 40 mg PO DAILY [facility] Last Admin: 10/27/17 10:53 Dose: 40 mg Non-Formulary Medication (Temazepam [Restoril]) 30 mg PO HS [facility] Last Admin: 10/26/17 22:15 Dose: 30 mg Ondansetron HCl (Zofran Inj) 4 mg IVP Q4H PRN PRN Reason: Nausea/Vomiting Pantoprazole Sodium (Protonix Inj) 40 mg IVP Q12 [facility] Last Admin: 10/27/17 10:53 Dose: 40 mg Tamsulosin HCl (Flomax) 0.4 mg PO DAILY [facility] Last Admin: 10/27/17 10:44 Dose: 0.4 mg - Labs Labs: 10/27/17 07:30 10/27/17 07:30 PT 11.7 SECONDS (9.4-12.5) 10/23/17 14:25 INR 1.02 10/23/17 14:25 APTT 26.1 Seconds (25.1-36.5) 10/23/17 14:25 - Constitutional Appears: Non-toxic, No Acute Distress - Head Exam Head Exam: ATRAUMATIC, NORMOCEPHALIC - Eye Exam Eye Exam: EOMI - ENT Exam ENT Exam: Mucous Membranes Moist - Respiratory Exam Respiratory Exam: NORMAL BREATHING PATTERN - Cardiovascular Exam Cardiovascular Exam: +S1, +S2 - GI/Abdominal Exam GI & Abdominal Exam: Soft. absent: Firm, Guarding, Rigid, Tenderness Additional comments: Wound well aproximated non tender non erythematous. non drainginhg. VALERIA with serous output - Neurological Exam Neurological Exam: Alert, Awake - Psychiatric Exam Psychiatric exam: Normal Affect, Normal Mood - Skin Skin Exam: Dry, Normal Color Assessment and Plan - Assessment and Plan (Free Text) Assessment: 72M POD#4 s/p exlap and gram patch Advance to fulls, possibly soft for dinner D/W Dr. Marques Griffith PGY3
[2017-10-27] MEDS: Non Formulary Medication (Temazepam [Restoril] 30 MG) PO SCH (23:21)
[2017-10-28] MEDS: metroNIDAZOLE IV 500 mg/100 ml 500 MG/100 ML BAG IVPB SCH ×3 (06:13→21:48)
[2017-10-28 08:19] VITALS: RESP 20
[2017-10-28] MEDS ORDERED: Temazepam [Restoril] 30 MG (HOME MED) PO PRN (08:52)
--- NOTE | 2017-10-28 09:02 | CP.PCM.PN ---
Subjective - Date & Time of Evaluation Date of Evaluation: 10/28/17 Time of Evaluation: 08:58 - Subjective Subjective: General Surgery Dr. Mohan Pt S&E @bedside. no acute events overnight. pt has no complaints. denies F/C, N/ V. tolerating diet. (+)Flatus. Objective - Vital Signs/Intake and Output Vital Signs (last 24 hours): Temp Pulse Resp BP Pulse Ox 98 F 82 20 152/100 H 95 10/28/17 08:18 10/28/17 08:18 10/28/17 08:18 10/28/17 08:18 10/28/17 08:18 Intake and Output: 10/28/17 10/28/17 06:59 18:59 Output Total 450 Balance -450 - Medications Medications: Current Medications Acetaminophen (Tylenol 325mg Tab) 650 mg PO Q4H PRN PRN Reason: Pain, Mild (1-3) Benzocaine/Menthol (Cepacol Sore Throat) 1 darlin MT Q2H PRN PRN Reason: Sore Throat Clonidine HCl (Catapres) 0.1 mg PO BID REPLACED BY [facility] Last Admin: 10/27/17 17:16 Dose: 0.1 mg Enoxaparin Sodium (Lovenox) 40 mg SC DAILY TIFFANIE PRN Reason: Protocol Last Admin: 10/27/17 10:44 Dose: 40 mg Metronidazole (Flagyl) 500 mg in 100 mls @ 100 mls/hr IVPB Q8 TIFFANIE PRN Reason: Protocol Stop: 10/29/17 12:23 Last Admin: 10/28/17 06:13 Dose: 100 mls/hr Ampicillin Sodium/Sulbactam (Sodium 3 gm/ Sodium Chloride) 100 mls @ 200 mls/ hr IVPB Q6 TIFFANIE PRN Reason: Protocol Stop: 10/29/17 12:22 Last Admin: 10/28/17 06:14 Dose: 200 mls/hr Lisinopril (Zestril) 40 mg PO DAILY REPLACED BY [facility] Last Admin: 10/27/17 21:43 Dose: Not Given Non-Formulary Medication (Temazepam [Restoril]) 30 mg PO HS PRN PRN Reason: Insomnia Pantoprazole Sodium (Protonix Ec Tab) 40 mg PO ACB REPLACED BY [facility] Potassium Chloride (Klor-Con 10) 20 meq PO BID REPLACED BY [facility] Tamsulosin HCl (Flomax) 0.4 mg PO DAILY ITFFANIE Last Admin: 10/27/17 10:44 Dose: 0.4 mg - Labs Labs: 10/27/17 07:30 10/27/17 07:30 PT 11.7 SECONDS (9.4-12.5) 10/23/17 14:25 INR 1.02 10/23/17 14:25 APTT 26.1 Seconds (25.1-36.5) 10/23/17 14:25 - Constitutional Appears: Non-toxic, No Acute Distress - Head Exam Head Exam: NORMAL INSPECTION - Eye Exam Eye Exam: Normal appearance - ENT Exam ENT Exam: Mucous Membranes Moist - Respiratory Exam Respiratory Exam: NORMAL BREATHING PATTERN. absent: Accessory Muscle Use, Respiratory Distress - Cardiovascular Exam Cardiovascular Exam: REGULAR RHYTHM. absent: Bradycardia, Tachycardia - GI/Abdominal Exam GI & Abdominal Exam: Soft, Tenderness (heather-incisonal TTP). absent: Distended, Firm, Guarding, Rebound Additional comments: edie intact skin well approximated Kota in place w/ serous drainage. - Neurological Exam Neurological Exam: Alert, Awake, Oriented x3 - Psychiatric Exam Psychiatric exam: Normal Affect, Normal Mood - Skin Skin Exam: Dry, Intact, Normal Color, Warm Assessment and Plan - Assessment and Plan (Free Text) Assessment: 72y/o M POD#5 s/p exlap and gram patch - advance to soft diet - monitor bowel fxn - cont pain management - monitor drain output - encourage OOb to chair/Amb/IS use Pt discussed w/ Dr. Marques Iraheta DO PGY3
[2017-10-28] MEDS: Enoxaparin 40 mg Syringe SC SCH (11:37)
[2017-10-28] MEDS: Potassium Chloride 10 mEq ER Tab PO SCH ×2 (11:37→17:25)
[2017-10-28] MEDS: Pantoprazole 40 mg EC Tab PO SCH (11:38)
--- NOTE | 2017-10-28 12:01 | PN ---
DATE: 10/27/2017 SUBJECTIVE: The patient was seen this Sunday in room 572, bed 1 with his at the bedside. He is awake, alert, clear and oriented. IV is infusing. Gustavo-Quintero drain is in place, becoming more and more clear. He has some abdominal contractions and intestinal rumbling. He passes gas. PHYSICAL EXAMINATION: LUNGS: Clear. HEART: Regular. Non-tachycardic. ABDOMEN: Bowel sound present. EXTREMITIES: Calves, SCDs are in place. There is no calf tenderness. PLAN: We will increase diet. Discontinue IV fluids in view of history of hypertension, add clonidine for additional blood pressure control and see how the patient does from clear liquids, we will go to liquids and soft and check with surgical team continuing antibiotics as this is only day #5 of antibiotics from this perforated viscus and peritonitis. Addison Palm MD
--- NOTE | 2017-10-28 13:35 | PN ---
DATE: 10/28/2017 SUBJECTIVE: The patient was seen this Sunday morning in room 572, bed 1. His is at the bedside. He is awake, alert, clear, in good spirits, has some morning sinus and nasal congestion like he sometimes does have. There has been nothing new or acute or related to the NG tube. He said this is a chronic condition. He feels well, tolerated soft diet this morning, had a bowel movement yesterday. PHYSICAL EXAMINATION: HEAD AND NECK: Essentially unremarkable. ABDOMEN: Bowel sounds are present. Abdomen is soft. Gustavo-Quintero drain is present, but it is just a clear serous fluid now with no blood staining at all. There is no Eduardo catheter. EXTREMITIES: Shows no edema. SCD stockings in place. IMPRESSION: 1. Peritonitis, now day #6 of IV antibiotics, status post surgical repair of a ruptured weeping ulcer. 2. Hypertension. 3. Osteoarthritis. PLAN: Continue IV antibiotics for now. Discontinue IV fluids. Monitor blood pressure as it was excellent during the night, but this high this morning, but just before his clonidine dose to be given. White count remains elevated, so I will continue the antibiotics. Continue the diet as he appears to be tolerating it well. Potassium is little low at 3.1, so I will supplement that with oral K for potassium. I will change some of his IV meds to p.o., particularly, his pantoprazole. He is not taking Dilaudid or Zofran, so I will discontinue those. Discontinue the O2 and the bedside monitor as we prepare for probable discharge home tomorrow. Addison Palm MD
[2017-10-29] MEDS: metroNIDAZOLE IV 500 mg/100 ml 500 MG/100 ML BAG IVPB SCH (06:02)
[2017-10-29] MEDS: Pantoprazole 40 mg EC Tab PO SCH (06:36)
[2017-10-29 07:23] LABS: BASO # 0.04 K/mm3 (0.0-2.0); BASO % 0.3 % (0.0-3.0); EOS # 0.6 (0.0-0.7); EOS % 4.9 % (1.5-5.0); GRAN # 8.11 (1.4-6.5); GRAN % 66.1 % (50.0-68.0); HEMOGLOBIN 12.9 g/dL (14.0-18.0); LYMPH # 2.4 (1.2-3.4); LYMPH % 19.3 % (22.0-35.0); MEAN CELL VOLUME 96.4 fl (80.0-105.0); MEAN CORPUSCULAR HEMOGLOBIN 33.2 pg (25.0-35.0); MEAN CORPUSCULAR HGB CONC 34.5 g/dl (31.0-37.0); MEAN PLATELET VOLUME 10.6 fl (7.0-11.0); MONO # 1.2 (0.1-0.6); MONO % 9.4 % (1.0-6.0); RBC 3.88 10^6/uL (3.5-6.1); RED CELL DISTRIBUTION WIDTH 12.9 % (11.5-14.5); WHITE BLOOD COUNT 12.3 10^3/ul (4.5-11.0)
[2017-10-29 07:54] LABS: ALB/GLOB RATIO 0.9 (1.1-1.8); ALBUMIN 2.6 g/dL (3.0-4.8); ALT/SGPT 23 U/L (7-56); AST/SGOT 20 U/L (17-59); BLOOD UREA NITROGEN 12 mg/dL (7-21); GFR NON-AFRICAN AMERICAN > 60
[2017-10-29] MEDS: Potassium Chloride 10 mEq ER Tab PO SCH (09:05)
[2017-10-29] MEDS: Enoxaparin 40 mg Syringe SC SCH (09:05)
[2017-10-29 09:12] VITALS: BP 159/94; PULSE 82
[2017-10-29 09:51] VITALS: TEMP 98; O2SAT 97
--- NOTE | 2017-10-29 10:00 | CP.PCM.PN ---
Subjective - Date & Time of Evaluation Date of Evaluation: 10/29/17 Time of Evaluation: 09:57 - Subjective Subjective: General surgery progress note for Dr. Mohan Patient seen and examines at bedside. No acute events overnight, patient has no complaints at this time. Patient is passing flatus and tolerating normal diet. Denies fevers, N/V, or abdominal pain. Objective - Vital Signs/Intake and Output Vital Signs (last 24 hours): Temp Pulse Resp BP Pulse Ox 98 F 82 20 159/94 H 97 10/29/17 06:00 10/29/17 09:06 10/29/17 06:00 10/29/17 09:06 10/29/17 06:00 Intake and Output: 10/29/17 10/29/17 06:59 18:59 Intake Total 780 Output Total 600 Balance 180 - Medications Medications: Current Medications Acetaminophen (Tylenol 325mg Tab) 650 mg PO Q4H PRN PRN Reason: Pain, Mild (1-3) Benzocaine/Menthol (Cepacol Sore Throat) 1 darlin MT Q2H PRN PRN Reason: Sore Throat Clonidine HCl (Catapres) 0.1 mg PO BID [facility] Last Admin: 10/29/17 09:06 Dose: 0.1 mg Enoxaparin Sodium (Lovenox) 40 mg SC DAILY TIFFANIE PRN Reason: Protocol Last Admin: 10/29/17 09:05 Dose: 40 mg Metronidazole (Flagyl) 500 mg in 100 mls @ 100 mls/hr IVPB Q8 TIFFANIE PRN Reason: Protocol Stop: 10/29/17 12:23 Last Admin: 10/29/17 06:02 Dose: 100 mls/hr Ampicillin Sodium/Sulbactam (Sodium 3 gm/ Sodium Chloride) 100 mls @ 200 mls/hr IVPB Q6 TIFFANIE PRN Reason: Protocol Stop: 10/29/17 12:22 Last Admin: 10/29/17 05:15 Dose: 200 mls/hr Lisinopril (Zestril) 40 mg PO DAILY [facility] Last Admin: 10/29/17 09:06 Dose: 40 mg Temazepam [Restoril] (30 Mg (Home Med)) 30 mg PO HS PRN PRN Reason: Insomnia Last Admin: 10/28/17 21:49 Dose: 30 mg Pantoprazole Sodium (Protonix Ec Tab) 40 mg PO ACB [facility] Last Admin: 10/29/17 06:36 Dose: 40 mg Potassium Chloride (Klor-Con 10) 20 meq PO BID [facility] Last Admin: 10/29/17 09:05 Dose: 20 meq Tamsulosin HCl (Flomax) 0.4 mg PO DAILY [facility] Last Admin: 10/29/17 09:05 Dose: 0.4 mg - Labs Labs: 10/29/17 06:30 10/29/17 06:30 PT 11.7 SECONDS (9.4-12.5) 10/23/17 14:25 INR 1.02 10/23/17 14:25 APTT 26.1 Seconds (25.1-36.5) 10/23/17 14:25 - Constitutional Appears: Well, Non-toxic, No Acute Distress - Head Exam Head Exam: ATRAUMATIC, NORMOCEPHALIC - Eye Exam Eye Exam: Normal appearance. absent: Conjunctival injection, Scleral icterus - ENT Exam ENT Exam: Mucous Membranes Moist, Normal Oropharynx - Respiratory Exam Respiratory Exam: NORMAL BREATHING PATTERN. absent: Accessory Muscle Use, Respiratory Distress - Cardiovascular Exam Cardiovascular Exam: RRR. absent: Bradycardia, Tachycardia - GI/Abdominal Exam GI & Abdominal Exam: Soft, Tenderness (heather-incisional tenderness). absent: Distended, Guarding Additional comments: midline incision well approximated, no erythema, bleeding, or drainage site of jah drain with moderate amount of serous drainage. - Extremities Exam Extremities Exam: absent: Calf Tenderness, Pedal Edema, Tenderness - Neurological Exam Neurological Exam: Alert, Awake, Oriented x3 - Psychiatric Exam Psychiatric exam: Normal Affect, Normal Mood - Skin Skin Exam: Dry, Normal Color, Warm Assessment and Plan - Assessment and Plan (Free Text) Assessment: 72 y/o male POD#6 s/p exlap and gram patch for duodenal ulcer perforation. Plan: - Advanced to regular diet, tolerating diet well. - Patient is cleared from surgery's point of view. - Follow up with Dr. Mohan in his office in 1-2 weeks. 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 Pt discussed w/ Dr. Marques Josue DO PGY-1
--- NOTE | 2017-10-30 07:33 | DS ---
HISTORY OF PRESENT ILLNESS: The patient is a 72-year-old male, who was admitted to the [facility] on 10/23/2017 with a perforated duodenal ulcer. He has a history of hypertension. He was taken to the emergency room and he underwent surgery with Dr. Addison Mohan and did well through his postoperative course. His blood pressure was managed and as the patient improved, he began to tolerate foods. When seen today, he is sitting up in bed. His is at bedside. He tolerated yesterday's meals and breakfast this morning well. He was ambulating to the bathroom without complaints. He feels strong and stable on his feet. PHYSICAL EXAMINATION: LUNGS: Clear to auscultation and percussion. HEART: Regular. ABDOMEN: Soft. Slightly tender from his incision. The wound looks clean, but there may be an ecchymosis versus small hernia to the left of the middle of his incision line. The patient is to be evaluated by Dr. Mohan later on this week. EXTREMITIES: Free of cyanosis, clubbing or edema. LABORATORY DATA: Morning laboratory shows the white blood cell count to be slightly elevated at 12.3, hemoglobin and hematocrit of 12.9 and 37.4 respectively. Serum chemistries are acceptable/unremarkable. So the patient is to be discharged to home today. I will be in contact with the local [facility] to give him prescriptions for Augmentin 500 mg to be taken twice a day for the next 5 days as well as pantoprazole 40 mg to be taken once a day for the next several months. As above, he is scheduled to follow up with the surgeon, Dr. Mohan later on this week and he will follow up with us in an office visit next week. FINAL DIAGNOSES: 1. Perforated duodenal ulcer. 2. Peritonitis. 3. Hypertension. Mark Palm MD
--- NOTE | 2017-11-08 11:29 | OP ---
PROCEDURE DATE: 10/23/2017 PREOPERATIVE DIAGNOSIS: Perforation with free air. POSTOPERATIVE DIAGNOSIS: Perforation with free air. SURGEON: Addison Mohan MD. DESCRIPTION OF PROCEDURE: In the operating room, the patient was identified by name, name of procedure, laterality and my stoney and after the successful timeout during which the chlorhexidine was dried for 3 minutes, the abdomen thereafter prepped and draped. An upper midline incision was made through the skin and subcutaneous tissues and the abdomen entered quickly. The abdomen was cleaned, suctioned dried and irrigated with Clorpactin several times during the course of the operation. Sigmoid was unremarkable. Small bowel was unremarkable. There was inflammation and fluid by the duodenum and there was an anterior perforation. This was irrigated, cleaned. The omentum was pediculized and brought up , 2-0 mattress stitches of silk were placed. We could not close the defect, but the omentum was sutured over it, tamped down nicely. A Kota was placed. The area was again irrigated and dried. Sponge and needle count was declared correct. The incision was closed with running #1 PDS above and below. The incision was closed. The patient was taken to ICU in good condition after the sponge and needle count was declared correct. Addison Mohan MD
== END 2017-10-29 13:12 | disposition home or self-care (01) | DRG 329 ==
LOC: ED 13:44 → ERH 14:25 → CCU 19:41 → 5RNO 10-25 19:32 → 5RSO 10-26 13:59
PROVIDERS: ADMIT Internal Medicine; ATTEND Internal Medicine
PROC: 0DU907Z Supplement Duodenum with Autologous Tissue Substitute, Open Approach (ICD-10-PCS; principal; 2017-10-23 15:30)
DX: K26.5 Chronic or unspecified duodenal ulcer with perforation (principal); K65.0 Generalized (acute) peritonitis; K57.10 Diverticulosis of small intestine without perforation or abscess without bleeding; I10 Essential (primary) hypertension; K21.9 Gastro-esophageal reflux disease without esophagitis; N40.0 Benign prostatic hyperplasia without lower urinary tract symptoms; F17.210 Nicotine dependence, cigarettes, uncomplicated; M19.90 Unspecified osteoarthritis, unspecified site; Z82.49 Family history of ischemic heart disease and other diseases of the circulatory system; Z83.3 Family history of diabetes mellitus